=== PATIENT | female | born 1930 | race Caucasian/White ===

== ENCOUNTER 2017-05-14 09:51 | Inpatient (IN) | payer MEDICARE, OTHER ==
[2017-05-14] MEDS ORDERED: NS 0.9% 1000 ML* 1,000 ML IV ONE (10:44)
[2017-05-14 12:35] LABS: Hematocrit 39 % (35-47); Hemoglobin 13.2 g/dl (12.0-16.0); Mean Corpuscular HGB Conc 34 g/dl (31-36); Mean Corpuscular Hemoglobin 33 pg (27-31); Mean Corpuscular Volume 99 fL (80-97); Mean Platelet Volume 7 um3 (7.4-10.4); Red Blood Count 3.94 10^6/ul (4.0-5.4); Red Cell Distribution Width 13 % (10.5-15); White Blood Count 10.4 10^3/ul (3.5-10.8)
[2017-05-14 12:51] LABS: Albumin 3.7 g/dL (3.2-5.2); BUN/Creatinine Ratio 18.2 (8-20); C Reactive Protein 121.87 mg/L (< 5.00); Calcium 8.8 mg/dL (8.6-10.3); EGFR African American 134.2 (>60); EGFR Non-African American 104.3 (>60); Potassium 4.3 mmol/L (3.5-5.0); Total Bilirubin 0.9 mg/dL (0.2-1.0); Total Protein 6.7 g/dL (6.4-8.9)
[2017-05-14] MEDS ORDERED: Ondansetron INJ* 2 MG/ML VIAL ONE (12:52)
[2017-05-14 12:53] LABS: Troponin I 0.02 ng/mL (<0.04)
[2017-05-14 12:55] LABS: Urine Bacteria Absent (Absent); Urine Bilirubin Negative (Negative); Urine Glucose Negative (Negative); Urine Nitrite Negative (Negative)
--- NOTE | 2017-05-14 13:02 | RAD ---
INDICATION: Shortness of breath. COMPARISON: Similar chest x-ray dated January 02, 2015 TECHNIQUE: Single AP portable view of the chest was obtained. FINDINGS: Image quality is compromised due to the relative inferiority of a portable chest x-ray. The heart is mildly enlarged relative to the previous chest x-ray. Pulmonary vasculature looks mildly engorged and is indistinct. The lungs are otherwise adequately aerated on this limited portable AP view. Visualized bones are normal for the patient's age. IMPRESSION: In the correct clinical setting the radiographic findings could be compatible with exacerbation of congestive heart failure.
[2017-05-14] MEDS ORDERED: Furosemide IV* 10 MG/ML 2 ML VIAL (20 MG) IV ONE (13:34)
[2017-05-14] MEDS ORDERED: NS 0.9% 1000 ML* 500 ML IV ONE (13:34)
[2017-05-14] MEDS ORDERED: NS 0.9% 1000 ML* 1,000 ML IV SCH (14:30)
[2017-05-14] MEDS ORDERED: Acetaminophen TAB* 325 MG PO PRN (14:33)
[2017-05-14] MEDS: Ondansetron INJ* 2 MG/ML VIAL IV ONE ×2 (15:38→16:23)
--- NOTE | 2017-05-14 16:07 | HP ---
CC: Dr. Prakash HISTORY AND PHYSICAL: DATE OF ADMISSION: 05/14/17 PRIMARY CARE PHYSICIAN: Dr. Prakash. CHIEF COMPLAINT: "Feeling crummy." HISTORY OF PRESENT ILLNESS: Ms. Cameron is an 87-year-old female with past medical history of hyper tension, hypothyroidism, degenerative disk disease, GERD, AFib, on Eliquis, JORGE LUIS, who presents to the hospital after not improving with treatment for pneumonia. The patient states that over the week, the and the , she developed a dry cough, nausea, fever, and chills. She is a resident a [facility] and, unfortunately, no one was available over the weekend to see her. So, on Friday, 05/12, she saw nurse practitioner Magali, who diagnosed the patient with pneumonia. She reportedly had a temperature of 101 at the appointment. The patient was started on doxycycline, which she has bee n taking for the past few days. She states that since then she has not been feeling particularly we ll. She has not been eating much at all. She states she was told to stay hydrated. So, she has be en drinking a significant amount of water that she initially said was about 2 quarts' worth and then estimated maybe 10 cups. She has been taken Robitussin for her cough, which has remained nonproduc tive. She states she woke up today feeling "crummy," has not had any recurrence of the fever, but she called Magali again, who saw her, and she was sent to the hospital for further evaluation. The cydney suh denies any chest pain, shortness of breath, abdominal pain, wheezing, emesis, although has had significant nausea. Denies any congestion or URI symptoms. No diarrhea, constipation, hematuria o r hematochezia. PAST MEDICAL HISTORY: 1. Hypertension. 2. Anxiety. 3. GERD. 4. Hypothyroidism. 5. Degenerative disk disease. 6. AFib, on Eliquis. Follows with Dr. An. 7. JORGE LUIS. PAST SURGICAL HISTORY: 1. Tonsils and adenoids. 2. Gallbladder removal. 3. Right knee surgery. HOME MEDICATIONS: 1. Vitamin D3 2000 units by mouth daily. 2. Valsartan 80 mg by mouth daily. 3. Thiamine 100 mg by mouth daily. 4. Vitamin C 1000 mg by mouth daily. 5. Acetaminophen 1300 mg by mouth 3 times daily as needed for pain. 6. Tretinoin 0.05% topical daily. 7. Seroquel 12.5 mg by mouth at bedtime. 8. Omeprazole 20 mg by mouth daily. 9. Multivitamin 1 tablet by mouth daily. 10. Calcium carbonate/cholecalciferol 1 tablet by mouth daily. 11. Toprol-XL 12.5 mg every other day. 12. Synthroid 75 mcg by mouth daily. 13. Lasix 20 mg by mouth daily. 14. Guaifenesin 5 mg by mouth every 4 hours as needed for cough. 15. Doxycycline 100 mg by mouth 3 times daily. 16. Aspirin 81 mg by mouth daily. 17. Eliquis 5 mg by mouth 3 times daily. 18. Diltiazem 120 mg by mouth daily. 19. Cranberry 400 mg by mouth daily. ALLERGIES: Reports an allergy to MORPHINE, which causes nausea and vomiting. FAMILY HISTORY: Significant for her father with asthma. SOCIAL HISTORY: The patient has one drink of gin and milk each night. Denies any tobacco use. Den ies any illicit drug use. REVIEW OF SYSTEMS: A 12-point review of systems is negative except for that as noted in the HPI. PHYSICAL EXAMINATION GENERAL: The patient is an elderly female, laying in bed, appears to be in some slight re spiratory distress, although denies this. VITAL SIGNS: On admission, temperature 98.4, heart rate of 100, respiratory rate of 20, O2 saturati on 93% on room air, blood pressure 161/94. HEENT: Head: Normocephalic, atraumatic. Eyes: Pupils equal, round, reactive to light and accommo dation. Anicteric sclerae. ENT: Dry mucous membranes. No cervical adenopathy. LUNGS: The patient has poor airflow. Some expiratory wheezing heard throughout as well as some sli ght rales diffusely. CARDIOVASCULAR: Irregularly irregular. No murmurs, gallops or rubs. ABDOMEN: Obese, soft, nontender, nondistended. Bowel sounds positive. EXTREMITIES: No cyanosis, clubbing, or edema. NEUROLOGIC: The patient is alert and oriented x3. No focal neurological deficits. DIAGNOSTIC STUDIES/LAB DATA: White blood cell count of 10.4, hemoglobin of 13, hematocrit of 39, p latelets of 192. INR of 1.15. Sodium of 120, potassium 4.3, chloride of 85, carbon dioxide of 28, BUN of 10, creatinine of 0.55. LFTs within normal limits. Troponin of 0.02. CRP of 121. B-natri uretic peptide of 346. UA with no signs of infection. EKG shows AFib with intraventricular conduction delay. Chest x-ray, personally reviewed, shows no consolidations. Maybe some increased pulmonary vasculatu re. ASSESSMENT AND PLAN: Hyponatremia in the setting of recently diagnosed pneumonia in an 87-year-old female with a past medical history of hypertension, anxiety, gastroesophageal reflux disease, atrial fibrillation, on Eliquis, hypothyroidism, obstructive sleep apnea, and degenerative disk disease. 1. Hyponatremia: Based on the patient's history, it seems like this is probably due to low solute intake. She appears somewhat dry on exam, although her lung exam is a bit confounding, although I d o not think the rales are secondary to fluid overload. We will check a urine sodium, urine osmolali ty, and a serum osmolality. The patient received IV fluids in the emergency department. We will con tinue her on 100 cc an hour for now and recheck BMP later this afternoon to ensure she is going in t he right direction. 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 Her hyponatremia could be contributing to why she has not seemed to feel better as far as her nausea and "crumminess" goes. We will check a TSH. 2. Recently diagnosed pneumonia: No clear consolidations on chest x-ray. I am going to continue t he patient on her doxycycline for now. CRP is elevated, although this may be down from previously. We will check a procalcitonin. Also prescribe nebulizers as the patient sounds a bit tight on exam . Wean oxygen as able. 3. Hypertension: Continue home losartan, diltiazem, and metoprolol. 4. Atrial fibrillation: Continue rate controlling agents as above as well as Eliquis. 5. Obstructive sleep apnea: CPAP at night. 6. Gastroesophageal reflux disease: Continue PPI. 7. DVT prophylaxis: Eliquis. 8. Code status: The patient is a full code with a trial of intubation. This is provided in paperw or[facility] from [facility]. TIME SPENT: Total time spent on this admission was 45 minutes, with over half the time spent face-t o-face with the patient in counseling and coordinating care. [id number]/[facility] #: [id number]
[2017-05-14 16:57] LABS: BUN/Creatinine Ratio 17.6 (8-20); Calcium 8.6 mg/dL (8.6-10.3); EGFR African American 146.4 (>60); EGFR Non-African American 113.8 (>60); Potassium 4.5 mmol/L (3.5-5.0)
[2017-05-14 17:31] LABS: TSH (Thyroid Stimulating Horm) 1.94 mcIU/mL (0.34-5.60)
--- NOTE | 2017-05-14 18:22 | ED ---
Lance Dent Aidan, scribed for Nitesh So MD on 05/14/17 at 1335 . Respiratory - HPI Summary HPI Summary: 87 y/o female presents to the ED with a complaint of acute, constant, moderate pneumonia that has not been alleviated by the antibiotics that she is currently on. Associated symptoms include nausea for the past 5 days, a dry cough, and a fever of 101 F 2 days ago. She denies any vomiting, diarrhea, constipation, or abdominal pain. She is here by the recommendation of her nurse practitioner. Hx of AFIB. - History of Current Complaint Chief Complaint: EDGeneral Stated Complaint: NAUSEA,COUGHING Time Seen by Provider: 05/14/17 10:44 Hx Obtained From: Patient Onset/Duration: Gradual Onset, Lasting Days, Still Present Timing: Constant Initial Severity: Moderate Current Severity: Moderate Pain Intensity: 0 - no pain mentioned Character: Cough (Nonproductive) - dry Sputum Amount: None Aggravating Factor(s): Other - unknown Alleviating Factor(s): Nothing - unknown Associated Signs and Symptoms: Fever - fever of 101, nausea, dry cough - Allergy/Home Medications Allergies/Adverse Reactions: Allergies Allergy/AdvReac Type Severity Reaction Status Date / Time Morphine Allergy Intermediate nasuea Verified 06/01/16 08:37 Home Medications: Home Medications Acetaminophen [Eql Arthritis Pain Relief] 1,300 mg PO BID PRN 05/14/17 [History Confirmed 05/14/17] Apixaban* [Eliquis*] 5 mg PO BID 05/14/17 [History Confirmed 05/14/17] Cholecalciferol [Vitamin D3 Super Strength] 2,000 unit PO DAILY 05/14/17 [ History Confirmed 05/14/17] Cranberry (Vaccinium Macrocarp [Cranberry] 400 mg PO DAILY 05/14/17 [History Confirmed 05/14/17] DOXYcycline CAP(*) [DOXYcycline 100MG CAP(*)] 100 mg PO BID 05/14/17 [History Confirmed 05/14/17] Furosemide TAB* [Lasix TAB*] 20 mg PO DAILY 05/14/17 [History Confirmed 05/14/17 ] Metoprolol Succinate XL TAB* [Toprol XL TAB*] 12.5 mg PO EVERY OTHER DAY [History Confirmed 05/14/17] Multivitamins/Minerals TAB* [Theragran/minerals TAB*] 1 tab PO DAILY 05/14/17 [ History Confirmed 05/14/17] QUEtiapine TAB* [SEROquel TAB*] 12.5 mg PO BEDTIME 05/14/17 [History Confirmed 05/14/17] Thiamine TAB* [Vitamin B-1 TAB*] 100 mg PO DAILY 05/14/17 [History Confirmed ] Tretinoin (Facial Wrinkles) [Tretinoin Emollient] 0.05 % TOPICAL DAILY 05/14/17 [History Confirmed 05/14/17] Valsartan TAB* [Diovan TAB*] 80 mg PO DAILY 05/14/17 [History Confirmed 05/14/17 ] guaiFENesin LIQ* [Robitussin*] 5 mg PO Q4H PRN 05/14/17 [History Confirmed 05/14] PMH/Surg Hx/FS Hx/Imm Hx Endocrine/Hematology History: Reports: Hx Thyroid Disease - Hypo Denies: Hx Diabetes Cardiovascular History: Reports: Hx Hypertension Denies: Hx Pacemaker/ICD Respiratory History: Reports: Other Respiratory Problems/Disorders - CPAP AT NIGHT. Denies: Hx Asthma, Hx Chronic Obstructive Pulmonary Disease (COPD) GI History: Reports: Hx Gastroesophageal Reflux Disease, Hx Ulcer History: Reports: Other Problems/Disorders - FREQ UTI Musculoskeletal History: Reports: Hx Arthritis Sensory History: Reports: Hx Cataracts, Hx Contacts or Glasses Denies: Hx Hearing Aid Opthamlomology History: Reports: Hx Cataracts, Hx Contacts or Glasses Neurological History: Reports: Hx Dementia Psychiatric History: Reports: Hx Depression, Hx of Violent Episodes Against Others Denies: Hx Eating Disorder, Hx Panic Disorder - Cancer History Hx Chemotherapy: No Hx Radiation Therapy: No - Surgical History Surgery Procedure, Year, and Place: Gall Bladder. RIGHT Knee Replacement. Cataracts Bilat. Tonsillectomy, Adenoidectomy Hx Anesthesia Reactions: No Infectious Disease History: No Infectious Disease History: Denies: Hx Hepatitis, Hx Human Immunodeficiency Virus (HIV), Hx of Known/ Suspected MRSA, Hx Shingles, Hx Tuberculosis, History Other Infectious Disease, Traveled Outside the [place] in Last 30 Days - Family History Known Family History: Positive: Unknown Negative: Other - breast CA - Social History Occupation: Retired Lives: With Family Alcohol Use: Daily Alcohol Amount: One glass of wine daily Substance Use Type: Reports: None Smoking Status (MU): Never Smoked Tobacco Have You Smoked in the Last Year: No Review of Systems Positive: Fever. Negative: Chills, Fatigue, Skin Diaphoresis Eyes: Negative ENT: Negative Cardiovascular: Negative Positive: Cough, Other - Positive pneumonia. Negative: Shortness Of Breath Positive: Nausea. Negative: Abdominal Pain, Vomiting, Diarrhea Genitourinary: Negative Musculoskeletal: Negative Skin: Negative Neurological: Negative Psychological: Normal All Other Systems Reviewed And Are Negative: Yes Physical Exam - Summary Physical Exam Summary: VITAL SIGNS: Reviewed. GENERAL: Patient is a well-developed and nourished FEMALE who is lying comfortable in the stretcher. Patient is not in any acute respiratory distress. HEAD AND FACE: No signs of trauma. No ecchymosis, hematomas or skull depressions. No sinus tenderness. EYES: PERRLA, EOMI x 2, No injected conjunctiva, no nystagmus. EARS: Hearing grossly intact. Ear canals and tympanic membranes are within normal limits. MOUTH: Oropharynx within normal limits. NECK: Supple, trachea is midline, no adenopathy, no JVD, no carotid bruit, no c- spine tenderness, neck with full ROM. CHEST: Symmetric, no tenderness at palpation LUNGS: Clear to auscultation bilaterally. No wheezing, however, she has crackles at the base of her lungs bilaterally. CVS: Positive Irregular rate and rhythm, S1 and S2 present, no murmurs or gallops appreciated. ABDOMEN: Soft, non-tender. No signs of distention. No rebound no guarding, and no masses palpated. Bowel sounds are normal. EXTREMITIES: FROM in all major joints, no edema, no cyanosis or clubbing. NEURO: Alert and oriented x 3. No acute neurological deficits. Speech is normal and follows commands. SKIN: Dry and warm Triage Information Reviewed: Yes Vital Signs On Initial Exam: Initial Vitals Temp Pulse Resp BP Pulse Ox 98.4 F 100 20 161/94 93 05/14/17 10:16 05/14/17 10:16 05/14/17 10:16 05/14/17 10:16 05/14/17 10:16 Vital Signs Reviewed: Yes - Vance Coma Scale Coma Scale Total: 15 Diagnostics - Vital Signs Vital Signs Temp Pulse Resp BP Pulse Ox 05/14/17 13:08 94 05/14/17 12:00 161/91 06/14/17 11:51 95 19 93 05/14/17 11:50 93 05/14/17 11:18 97 16 156/93 95 05/14/17 10:20 98.5 F 100 20 161/94 93 05/14/17 10:16 98.4 F 100 20 161/94 93 - Laboratory Lab Results: Lab Results 05/14/17 05/14/17 05/14/17 Range/Units 12:15 12:15 12:15 WBC 10.4 (3.5-10.8) 10^3/ul RBC 3.94 L (4.0-5.4) 10^6/ul Hgb 13.2 (12.0-16.0) g/dl Hct 39 (35-47) % MCV 99 H (80-97) fL MCH 33 H (27-31) pg MCHC 34 (31-36) g/dl RDW 13 (10.5-15) % Plt Count 192 (150-450) 10^3/ul MPV 7 L (7.4-10.4) um3 Neut % (Auto) 81.3 (38-83) % Lymph % (Auto) 9.3 L (25-47) % [place] % (Auto) 8.7 (1-9) % Eos % (Auto) 0.4 (0-6) % Baso % (Auto) 0.3 (0-2) % Absolute Neuts (auto) 8.4 H (1.5-7.7) 10^3/ul Absolute Lymphs (auto) 1.0 (1.0-4.8) 10^3/ul Absolute Monos (auto) 0.9 H (0-0.8) 10^3/ul Absolute Eos (auto) 0 (0-0.6) 10^3/ul Absolute Basos (auto) 0 (0-0.2) 10^3/ul Absolute Nucleated RBC 0.01 10^3/ul Nucleated RBC % 0.1 INR (Anticoag Therapy) 1.15 H (0.89-1.11) APTT 23.9 L (26.0-36.3) seconds Sodium (133-145) mmol/L Potassium (3.5-5.0) mmol/L Chloride (101-111) mmol/L Carbon Dioxide (22-32) mmol/L Anion Gap (2-11) mmol/L BUN (6-24) mg/dL Creatinine (0.51-0.95) mg/dL Est GFR ( Amer) (>60) Est GFR (Non-Af Amer) (>60) BUN/Creatinine Ratio (8-20) Glucose (70-100) mg/dL Calcium (8.6-10.3) mg/dL Total Bilirubin (0.2-1.0) mg/dL AST (13-39) U/L ALT (7-52) U/L Alkaline Phosphatase (34-104) U/L Troponin I (<0.04) ng/mL C-Reactive Protein (< 5.00) mg/L B-Natriuretic Peptide ( - 100) pg/mL Total Protein (6.4-8.9) g/dL Albumin (3.2-5.2) g/dL Globulin (2-4) g/dL Albumin/Globulin Ratio (1-3) Urine Color Yellow Urine Appearance Clear Urine pH 6.0 (5-9) Ur Specific [place] 1.015 (1.010-1.030) Urine Protein Negative (Negative) Urine Ketones 1+ H (Negative) Urine Blood Negative (Negative) Urine Nitrate Negative (Negative) Urine Bilirubin Negative (Negative) Urine Urobilinogen Positive H (Negative) Ur Leukocyte Esterase Trace H (Negative) Urine WBC (Auto) Trace(0-5/hpf) (Absent) Urine RBC (Auto) Absent (Absent) Ur Squamous Epith Cells Present H (Absent) Urine Bacteria Absent (Absent) Urine Glucose Negative (Negative) Urine Ascorbic Acid * H (Negative) 05/14/17 05/14/17 Range/Units 12:15 12:15 WBC (3.5-10.8) 10^3/ul RBC (4.0-5.4) 10^6/ul Hgb (12.0-16.0) g/dl Hct (35-47) % MCV (80-97) fL MCH (27-31) pg MCHC (31-36) g/dl RDW (10.5-15) % Plt Count (150-450) 10^3/ul MPV (7.4-10.4) um3 Neut % (Auto) (38-83) % Lymph % (Auto) (25-47) % [place] % (Auto) (1-9) % Eos % (Auto) (0-6) % Baso % (Auto) (0-2) % Absolute Neuts (auto) (1.5-7.7) 10^3/ul Absolute Lymphs (auto) (1.0-4.8) 10^3/ul Absolute Monos (auto) (0-0.8) 10^3/ul Absolute Eos (auto) (0-0.6) 10^3/ul Absolute Basos (auto) (0-0.2) 10^3/ul Absolute Nucleated RBC 10^3/ul Nucleated RBC % INR (Anticoag Therapy) (0.89-1.11) APTT (26.0-36.3) seconds Sodium 120 L (133-145) mmol/L Potassium 4.3 (3.5-5.0) mmol/L Chloride 85 L (101-111) mmol/L Carbon Dioxide 28 (22-32) mmol/L Anion Gap 7 (2-11) mmol/L BUN 10 (6-24) mg/dL Creatinine 0.55 (0.51-0.95) mg/dL Est GFR ( Amer) 134.2 (>60) Est GFR (Non-Af Amer) 104.3 (>60) BUN/Creatinine Ratio 18.2 (8-20) Glucose 100 (70-100) mg/dL Calcium 8.8 (8.6-10.3) mg/dL Total Bilirubin 0.90 (0.2-1.0) mg/dL AST 35 (13-39) U/L ALT 38 (7-52) U/L Alkaline Phosphatase 92 (34-104) U/L Troponin I 0.02 (<0.04) ng/mL C-Reactive Protein 121.87 H (< 5.00) mg/L B-Natriuretic Peptide 346 H ( - 100) pg/mL Total Protein 6.7 (6.4-8.9) g/dL Albumin 3.7 (3.2-5.2) g/dL Globulin 3.0 (2-4) g/dL Albumin/Globulin Ratio 1.2 (1-3) Urine Color Urine Appearance Urine pH (5-9) Ur Specific [place] (1.010-1.030) Urine Protein (Negative) Urine Ketones (Negative) Urine Blood (Negative) Urine Nitrate (Negative) Urine Bilirubin (Negative) Urine Urobilinogen (Negative) Ur Leukocyte Esterase (Negative) Urine WBC (Auto) (Absent) Urine RBC (Auto) (Absent) Ur Squamous Epith Cells (Absent) Urine Bacteria (Absent) Urine Glucose (Negative) Urine Ascorbic Acid (Negative) Result Diagrams: 05/14/17 12:15 05/14/17 16:32 Lab Statement: Any lab studies that have been ordered have been reviewed, and results considered in the medical decision making process. - Radiology CHEST X-RAY Xray Interpretation: Positive (See Comments) - IMPRESSION: In the correct clinical setting the radiographic findings could be compatible with exacerbation of congestive heart failure. Radiology Interpretation Completed By: Radiologist - EKG EKG 1314 Cardiac Rate: NL - 85 BPM EKG Rhythm: Atrial Fibrillation EKG Interpretation: AFIB Re-Evaluation - Re-Evaluation First Eval Re-Evaluation Time: 13:20 - The patient still had AFIB Change: Unchanged Disposition - Course Assessment/Plan: 87 y/o female presents to the ED with a complaint of acute, constant, moderate pneumonia that has not been alleviated by the antibiotics that she is currently on. Associated symptoms include nausea for the past 5 days , a dry cough, and a fever of 101 F 2 days ago. She denies any vomiting, diarrhea, constipation, or abdominal pain. She is here by the recommendation of her nurse practitioner. Hx of AFIB. In the ED course an IV access was obtained. Patient was placed in a telemetry monitor. Patient was started with gentle IV fluids. Labs within normal limits except for Hyponatremia of 120. CRP 121.8 and BNP of 346. Troponin #1: 0.02. EKG shows atrial fibrillation rate control. CXR impression: CHF exacerbation. . In the ED course she was give Lasix and IV fluids for her Hyponatremia. SHe has been stable and has no other complaints. CXR shows no pneumonia, I believe that most of her symptoms are secondary to the hyponatremia. I discuss my physical exam, findings and test results with Dr. Corona from the hospitalist services and she agrees to admit patient to his services. Patient is hemodynamically stable alert and oriented x 3. - Differential Dx - Cardiopulmonary Differential Diagnoses - Cardiopulmonary: Other - Pneumonia, Bronchitis, UTI, Electrolite imbalance - Diagnoses Provider Diagnoses: Hyponatremia Discharge - Discharge Plan Condition: Stable Disposition: ADMITTED TO [facility] Discharge Disposition Comment: The patient will be admitted and signed out to Dr. Corona. The documentation as recorded by the Lance garcia Aidan accurately reflects the service I personally performed and the decisions made by , Nitesh So MD.
[2017-05-14] MEDS: Ondansetron ODT TAB* 4 MG SL PRN ×2 (18:33→23:57)
[2017-05-14] MEDS: QUEtiapine TAB* 25 MG PO SCH (23:09)
[2017-05-14] MEDS: DOXYcycline CAP(*) 100 MG PO SCH (23:10)
[2017-05-14] MEDS: Apixaban* 5 MG TAB PO SCH (23:11)
[2017-05-14] MEDS: guaiFENesin LIQ* 100 MG/5 ML UDC PO PRN (23:14)
[2017-05-15] MEDS: Levothyroxine TAB* 75 MCG TAB PO SCH (05:43)
[2017-05-15] MEDS: guaiFENesin LIQ* 100 MG/5 ML UDC PO PRN ×2 (06:06→19:39)
[2017-05-15] MEDS: Ondansetron ODT TAB* 4 MG SL PRN (06:07)
[2017-05-15 07:13] LABS: BUN/Creatinine Ratio 14.5 (8-20); Calcium 8.1 mg/dL (8.6-10.3); EGFR African American 116.8 (>60); EGFR Non-African American 90.8 (>60); Potassium 4.2 mmol/L (3.5-5.0)
[2017-05-15] MEDS ORDERED: Albuterol/Ipratropium NEB.SOL* Albuterol 2.5 MG/Ipratropium 0.5 MG 3 ML INH PRN (08:09)
--- NOTE | 2017-05-15 08:38 | PN ---
Subjective Date of Service: 05/15/17 Interval History: Pt feels better today. RN noted her wheezing this aM Usually uses CPAP and 2 L 02 at night Objective Active Medications: Acetaminophen (Tylenol Tab*) 650 mg PO Q6H PRN PRN Reason: PAIN Albuterol (Ventolin 2.5 Mg/3 Ml Neb.Danica*) 2.5 mg INH Q4H PRN PRN Reason: SOB/WHEEZING Albuterol/Ipratropium (Duoneb (Albuterol 2.5 Mg/Ipratropium 0.5 Mg)) 1 neb INH Q4H PRN PRN Reason: SOB/WHEEZING Apixaban (Eliquis*) 5 mg PO BID [facility] Last Admin: 05/14/17 23:11 Dose: 5 mg Ascorbic Acid (Vitamin C Tab*) 1,000 mg PO DAILY [facility] Aspirin (Aspirin Low Dose Tab*) 81 mg PO DAILY [facility] Calcium/Vitamin D (Oscal D Tab 250/125*) 1 tab PO DAILY [facility] Cholecalciferol (Vitamin D Tab*) 2,000 units PO DAILY [facility] Diltiazem HCl (Cardizem Cd Cap*) 120 mg PO DAILY [facility] Doxycycline Hyclate (Vibramycin Cap(*)) 100 mg PO BID [facility] Last Admin: 05/14/17 23:10 Dose: 100 mg Guaifenesin (Robitussin*) 5 ml PO Q4H PRN PRN Reason: COUGH Last Admin: 05/15/17 06:06 Dose: 5 ml Levothyroxine Sodium (Synthroid Tab*) 75 mcg PO 0600 [facility] Last Admin: 05/15/17 05:43 Dose: 75 mcg Metoprolol Succinate (Toprol Xl Tab*) 12.5 mg PO EVERY OTHER DAY [facility] Multivitamins/Minerals (Theragran/Minerals Tab*) 1 tab PO DAILY [facility] Omeprazole (Prilosec Cap*) 20 mg PO DAILY [facility] Ondansetron HCl (Zofran Odt Tab*) 4 mg SL Q6H PRN PRN Reason: NAUSEA/VOMITING Last Admin: 05/15/17 06:07 Dose: 4 mg Quetiapine Fumarate (Seroquel Tab*) 12.5 mg PO BEDTIME [facility] Last Admin: 05/14/17 23:09 Dose: 12.5 mg Thiamine HCl (Vitamin B-1 Tab*) 100 mg PO DAILY [facility] Valsartan (Diovan Tab*) 80 mg PO DAILY [facility] Vital Signs 05/14/17 05/14/17 05/14/17 16:12 19:46 20:00 Temperature 98.3 F 98.7 F Pulse Rate 98 97 Respiratory 20 20 22 Rate Blood Pressure 165/86 153/98 (mmHg) O2 Sat by Pulse 98 97 97 Oximetry 05/14/17 05/14/17 05/15/17 20:52 23:25 03:40 Temperature 98.7 F 97.0 F Pulse Rate 89 114 92 Respiratory 20 18 16 Rate Blood Pressure 154/97 149/78 (mmHg) O2 Sat by Pulse 97 96 92 Oximetry 05/15/17 07:25 Temperature 98.6 F Pulse Rate 97 Respiratory 15 Rate Blood Pressure 129/63 (mmHg) O2 Sat by Pulse 98 Oximetry Oxygen Devices in Use Now: Nasal Cannula - at 2 L Appearance: 87 yo F in nAD, aAOx3, poor historian Eyes: No Scleral Icterus, PERRLA Ears/Nose/Mouth/Throat: NL Teeth, Lips, Gums, Mucous Membranes Moist Neck: NL Appearance and Movements; NL JVP, Trachea Midline Respiratory: Symmetrical Chest Expansion and Respiratory Effort, - - crackles at wheezes at b/l bases Cardiovascular: - - irregular Abdominal: NL Sounds; No Tenderness; No Distention, No Hepatosplenomegaly Lymphatic: No Cervical Adenopathy Extremities: No Edema, No Clubbing, Cyanosis Skin: No Rash or Ulcers, No Nodules or Sclerosis Neurological: Alert and Oriented x 3, NL Muscle Strength and Tone Result Diagrams: 05/14/17 12:15 05/15/17 06:21 Additional Lab and Data: Lab Results 05/14/17 05/14/17 05/14/17 Range/Units 12:15 12:15 12:15 WBC 10.4 (3.5-10.8) 10^3/ul RBC 3.94 L (4.0-5.4) 10^6/ul Hgb 13.2 (12.0-16.0) g/dl Hct 39 (35-47) % MCV 99 H (80-97) fL MCH 33 H (27-31) pg MCHC 34 (31-36) g/dl RDW 13 (10.5-15) % Plt Count 192 (150-450) 10^3/ul MPV 7 L (7.4-10.4) um3 Neut % (Auto) 81.3 (38-83) % Lymph % (Auto) 9.3 L (25-47) % [place] % (Auto) 8.7 (1-9) % Eos % (Auto) 0.4 (0-6) % Baso % (Auto) 0.3 (0-2) % Absolute Neuts (auto) 8.4 H (1.5-7.7) 10^3/ul Absolute Lymphs (auto) 1.0 (1.0-4.8) 10^3/ul Absolute Monos (auto) 0.9 H (0-0.8) 10^3/ul Absolute Eos (auto) 0 (0-0.6) 10^3/ul Absolute Basos (auto) 0 (0-0.2) 10^3/ul Absolute Nucleated RBC 0.01 10^3/ul Nucleated RBC % 0.1 INR (Anticoag Therapy) 1.15 H (0.89-1.11) APTT 23.9 L (26.0-36.3) seconds Sodium (133-145) mmol/L Potassium (3.5-5.0) mmol/L Chloride (101-111) mmol/L Carbon Dioxide (22-32) mmol/L Anion Gap (2-11) mmol/L BUN (6-24) mg/dL Creatinine (0.51-0.95) mg/dL Est GFR ( Amer) (>60) Est GFR (Non-Af Amer) (>60) BUN/Creatinine Ratio (8-20) Glucose (70-100) mg/dL Calcium (8.6-10.3) mg/dL Total Bilirubin (0.2-1.0) mg/dL AST (13-39) U/L ALT (7-52) U/L Alkaline Phosphatase (34-104) U/L Troponin I (<0.04) ng/mL C-Reactive Protein (< 5.00) mg/L B-Natriuretic Peptide ( - 100) pg/mL Total Protein (6.4-8.9) g/dL Albumin (3.2-5.2) g/dL Globulin (2-4) g/dL Albumin/Globulin Ratio (1-3) Urine Color Yellow Urine Appearance Clear Urine pH 6.0 (5-9) Ur Specific [place] 1.015 (1.010-1.030) Urine Protein Negative (Negative) Urine Ketones 1+ H (Negative) Urine Blood Negative (Negative) Urine Nitrate Negative (Negative) Urine Bilirubin Negative (Negative) Urine Urobilinogen Positive H (Negative) Ur Leukocyte Esterase Trace H (Negative) Urine WBC (Auto) Trace(0-5/hpf) (Absent) Urine RBC (Auto) Absent (Absent) Ur Squamous Epith Cells Present H (Absent) Urine Bacteria Absent (Absent) Urine Glucose Negative (Negative) Urine Ascorbic Acid * H (Negative) 05/14/17 05/14/17 Range/Units 12:15 12:15 WBC (3.5-10.8) 10^3/ul RBC (4.0-5.4) 10^6/ul Hgb (12.0-16.0) g/dl Hct (35-47) % MCV (80-97) fL MCH (27-31) pg MCHC (31-36) g/dl RDW (10.5-15) % Plt Count (150-450) 10^3/ul MPV (7.4-10.4) um3 Neut % (Auto) (38-83) % Lymph % (Auto) (25-47) % [place] % (Auto) (1-9) % Eos % (Auto) (0-6) % Baso % (Auto) (0-2) % Absolute Neuts (auto) (1.5-7.7) 10^3/ul Absolute Lymphs (auto) (1.0-4.8) 10^3/ul Absolute Monos (auto) (0-0.8) 10^3/ul Absolute Eos (auto) (0-0.6) 10^3/ul Absolute Basos (auto) (0-0.2) 10^3/ul Absolute Nucleated RBC 10^3/ul Nucleated RBC % INR (Anticoag Therapy) (0.89-1.11) APTT (26.0-36.3) seconds Sodium 120 L (133-145) mmol/L Potassium 4.3 (3.5-5.0) mmol/L Chloride 85 L (101-111) mmol/L Carbon Dioxide 28 (22-32) mmol/L Anion Gap 7 (2-11) mmol/L BUN 10 (6-24) mg/dL Creatinine 0.55 (0.51-0.95) mg/dL Est GFR ( Amer) 134.2 (>60) Est GFR (Non-Af Amer) 104.3 (>60) BUN/Creatinine Ratio 18.2 (8-20) Glucose 100 (70-100) mg/dL Calcium 8.8 (8.6-10.3) mg/dL Total Bilirubin 0.90 (0.2-1.0) mg/dL AST 35 (13-39) U/L ALT 38 (7-52) U/L Alkaline Phosphatase 92 (34-104) U/L Troponin I 0.02 (<0.04) ng/mL C-Reactive Protein 121.87 H (< 5.00) mg/L B-Natriuretic Peptide 346 H ( - 100) pg/mL Total Protein 6.7 (6.4-8.9) g/dL Albumin 3.7 (3.2-5.2) g/dL Globulin 3.0 (2-4) g/dL Albumin/Globulin Ratio 1.2 (1-3) Urine Color Urine Appearance Urine pH (5-9) Ur Specific [place] (1.010-1.030) Urine Protein (Negative) Urine Ketones (Negative) Urine Blood (Negative) Urine Nitrate (Negative) Urine Bilirubin (Negative) Urine Urobilinogen (Negative) Ur Leukocyte Esterase (Negative) Urine WBC (Auto) (Absent) Urine RBC (Auto) (Absent) Ur Squamous Epith Cells (Absent) Urine Bacteria (Absent) Urine Glucose (Negative) Urine Ascorbic Acid (Negative) Assess/Plan/Problems-Billing Assessment: 87 yo F with h/o JORGE LUIS, HTN, hypothyroidism, A. fib presents with recent dx of PNA and hyponatremia - Patient Problems (1) Hyponatremia Comment: due to dehydration, resolved after IVF. will stop IVF, monitor (2) Atrial fibrillation Comment: rate controled, cont Eliquis and cardizem (3) HTN (hypertension) Comment: controlled (4) Hypothyroidism Comment: TSH 1.9 , cont Synthroid (5) Pneumonia Comment: community acquired, dx as outpatient. Cont Doxy no infiltrate on CXR (6) Bronchospasm Comment: due to pneumonia, ? viral since procalcitonin low Will start duonebs (7) DVT prophylaxis Comment: Eliquis Status and Disposition: OBV will be changed to inpatient, due to need of further tx of bronchospasm
[2017-05-15] MEDS: Albuterol 2.5 MG/3 ML NEB.SOL* (0.083%) INH PRN (08:45)
[2017-05-15] MEDS: DOXYcycline CAP(*) 100 MG PO SCH ×2 (10:12→20:58)
[2017-05-15] MEDS: Calcium/Vitamin D TAB 250/125* TAB PO SCH (10:12)
[2017-05-15] MEDS: Ascorbic Acid TAB* 500 MG PO SCH (10:12)
[2017-05-15] MEDS: Omeprazole CAP* 20 MG PO SCH (10:12)
[2017-05-15] MEDS: Multivitamins/Minerals TAB PO SCH (10:12)
[2017-05-15] MEDS: Cholecalciferol TAB* 1000 UNITS PO SCH (10:12)
[2017-05-15] MEDS: Aspirin Low Dose CHEW TAB* 81 MG PO SCH (10:12)
[2017-05-15] MEDS: Thiamine TAB* 100 MG TAB PO SCH (10:13)
[2017-05-15] MEDS: Apixaban* 5 MG TAB PO SCH ×2 (10:13→20:57)
[2017-05-15] MEDS: Diltiazem CD CAP* 120 MG PO SCH (10:13)
[2017-05-15] MEDS: Valsartan TAB* 80 MG PO SCH (10:14)
[2017-05-15] MEDS: QUEtiapine TAB* 25 MG PO SCH (20:58)
[2017-05-16 05:40] LABS: Hematocrit 36 % (35-47); Hemoglobin 12.1 g/dl (12.0-16.0); Mean Corpuscular HGB Conc 34 g/dl (31-36); Mean Corpuscular Hemoglobin 34 pg (27-31); Mean Corpuscular Volume 99 fL (80-97); Mean Platelet Volume 7 um3 (7.4-10.4); Red Blood Count 3.62 10^6/ul (4.0-5.4); Red Cell Distribution Width 13 % (10.5-15); White Blood Count 9.3 10^3/ul (3.5-10.8)
[2017-05-16 06:04] LABS: Calcium 8.5 mg/dL (8.6-10.3); EGFR African American 149.7 (>60); EGFR Non-African American 116.4 (>60); Potassium 3.6 mmol/L (3.5-5.0)
[2017-05-16] MEDS: guaiFENesin LIQ* 100 MG/5 ML UDC PO PRN ×3 (06:07→21:49)
[2017-05-16] MEDS: Levothyroxine TAB* 75 MCG TAB PO SCH (06:08)
[2017-05-16] MEDS: Metoprolol Succinate XL TAB* 25 MG PO SCH (10:05)
[2017-05-16] MEDS: Cholecalciferol TAB* 1000 UNITS PO SCH (10:06)
[2017-05-16] MEDS: Calcium/Vitamin D TAB 250/125* TAB PO SCH (10:06)
[2017-05-16] MEDS: Ascorbic Acid TAB* 500 MG PO SCH (10:06)
[2017-05-16] MEDS: Thiamine TAB* 100 MG TAB PO SCH (10:06)
[2017-05-16] MEDS: Aspirin Low Dose CHEW TAB* 81 MG PO SCH (10:07)
[2017-05-16] MEDS: Valsartan TAB* 80 MG PO SCH (10:07)
[2017-05-16] MEDS: Multivitamins/Minerals TAB PO SCH (10:07)
[2017-05-16] MEDS: DOXYcycline CAP(*) 100 MG PO SCH ×2 (10:07→21:50)
[2017-05-16] MEDS: Omeprazole CAP* 20 MG PO SCH (10:07)
[2017-05-16] MEDS: Diltiazem CD CAP* 120 MG PO SCH (10:08)
[2017-05-16] MEDS: Apixaban* 5 MG TAB PO SCH ×2 (10:13→21:50)
--- NOTE | 2017-05-16 12:03 | PN ---
Subjective Date of Service: 05/16/17 Interval History: Pt feels better today,appetite has returned. /still 02 sat on RA down to 86% Objective Active Medications: Acetaminophen (Tylenol Tab*) 650 mg PO Q6H PRN PRN Reason: PAIN Albuterol (Ventolin 2.5 Mg/3 Ml Neb.Danica*) 2.5 mg INH Q4H PRN PRN Reason: SOB/WHEEZING Last Admin: 05/15/17 08:45 Dose: 2.5 mg Albuterol/Ipratropium (Duoneb (Albuterol 2.5 Mg/Ipratropium 0.5 Mg)) 1 neb INH Q4H PRN PRN Reason: SOB/WHEEZING Apixaban (Eliquis*) 5 mg PO BID [facility] Last Admin: 05/16/17 10:13 Dose: 5 mg Ascorbic Acid (Vitamin C Tab*) 1,000 mg PO DAILY [facility] Last Admin: 05/16/17 10:06 Dose: 1,000 mg Aspirin (Aspirin Low Dose Tab*) 81 mg PO DAILY [facility] Last Admin: 05/16/17 10:07 Dose: 81 mg Calcium/Vitamin D (Oscal D Tab 250/125*) 1 tab PO DAILY [facility] Last Admin: 05/16/17 10:06 Dose: 1 tab Cholecalciferol (Vitamin D Tab*) 2,000 units PO DAILY [facility] Last Admin: 05/16/17 10:06 Dose: 2,000 units Diltiazem HCl (Cardizem Cd Cap*) 120 mg PO DAILY [facility] Last Admin: 05/16/17 10:08 Dose: 120 mg Doxycycline Hyclate (Vibramycin Cap(*)) 100 mg PO BID [facility] Last Admin: 05/16/17 10:07 Dose: 100 mg Guaifenesin (Robitussin*) 5 ml PO Q4H PRN PRN Reason: COUGH Last Admin: 05/16/17 06:07 Dose: 5 ml Levothyroxine Sodium (Synthroid Tab*) 75 mcg PO 0600 [facility] Last Admin: 05/16/17 06:08 Dose: 75 mcg Metoprolol Succinate (Toprol Xl Tab*) 12.5 mg PO EVERY OTHER DAY [facility] Last Admin: 05/16/17 10:05 Dose: 12.5 mg Multivitamins/Minerals (Theragran/Minerals Tab*) 1 tab PO DAILY [facility] Last Admin: 05/16/17 10:07 Dose: 1 tab Omeprazole (Prilosec Cap*) 20 mg PO DAILY [facility] Last Admin: 05/16/17 10:07 Dose: 20 mg Ondansetron HCl (Zofran Odt Tab*) 4 mg SL Q6H PRN PRN Reason: NAUSEA/VOMITING Last Admin: 05/15/17 06:07 Dose: 4 mg Quetiapine Fumarate (Seroquel Tab*) 12.5 mg PO BEDTIME [facility] Last Admin: 05/15/17 20:58 Dose: 12.5 mg Thiamine HCl (Vitamin B-1 Tab*) 100 mg PO DAILY [facility] Last Admin: 05/16/17 10:06 Dose: 100 mg Valsartan (Diovan Tab*) 80 mg PO DAILY [facility] Last Admin: 05/16/17 10:07 Dose: 80 mg Vital Signs 05/15/17 05/15/17 05/15/17 12:13 15:29 19:14 Temperature 97.5 F 98.6 F 98.7 F Pulse Rate 117 77 91 Respiratory 16 17 17 Rate Blood Pressure 151/83 136/71 139/70 (mmHg) O2 Sat by Pulse 93 97 98 Oximetry 05/15/17 05/15/17 05/16/17 20:00 23:12 03:43 Temperature 98.1 F Pulse Rate 99 81 Respiratory 20 20 16 Rate Blood Pressure 131/66 135/72 (mmHg) O2 Sat by Pulse 98 93 98 Oximetry 05/16/17 09:28 Temperature Pulse Rate 65 Respiratory 12 Rate Blood Pressure (mmHg) O2 Sat by Pulse 98 Oximetry Oxygen Devices in Use Now: Nasal Cannula - at 2 L Appearance: 87 yo F in nAD, aAOx3, poor historian Eyes: No Scleral Icterus, PERRLA Ears/Nose/Mouth/Throat: NL Teeth, Lips, Gums, Mucous Membranes Moist Neck: NL Appearance and Movements; NL JVP, Trachea Midline Respiratory: Symmetrical Chest Expansion and Respiratory Effort, - - diffuse wheezes b/l crackles at bases Cardiovascular: - - irregular Lymphatic: No Cervical Adenopathy Extremities: No Edema, No Clubbing, Cyanosis Skin: No Rash or Ulcers, No Nodules or Sclerosis Neurological: Alert and Oriented x 3, NL Muscle Strength and Tone Result Diagrams: 05/16/17 05:25 05/16/17 05:25 Additional Lab and Data: Lab Results 05/14/17 05/14/17 05/14/17 Range/Units 12:15 12:15 12:15 WBC 10.4 (3.5-10.8) 10^3/ul RBC 3.94 L (4.0-5.4) 10^6/ul Hgb 13.2 (12.0-16.0) g/dl Hct 39 (35-47) % MCV 99 H (80-97) fL MCH 33 H (27-31) pg MCHC 34 (31-36) g/dl RDW 13 (10.5-15) % Plt Count 192 (150-450) 10^3/ul MPV 7 L (7.4-10.4) um3 Neut % (Auto) 81.3 (38-83) % Lymph % (Auto) 9.3 L (25-47) % [place] % (Auto) 8.7 (1-9) % Eos % (Auto) 0.4 (0-6) % Baso % (Auto) 0.3 (0-2) % Absolute Neuts (auto) 8.4 H (1.5-7.7) 10^3/ul Absolute Lymphs (auto) 1.0 (1.0-4.8) 10^3/ul Absolute Monos (auto) 0.9 H (0-0.8) 10^3/ul Absolute Eos (auto) 0 (0-0.6) 10^3/ul Absolute Basos (auto) 0 (0-0.2) 10^3/ul Absolute Nucleated RBC 0.01 10^3/ul Nucleated RBC % 0.1 INR (Anticoag Therapy) 1.15 H (0.89-1.11) APTT 23.9 L (26.0-36.3) seconds Sodium (133-145) mmol/L Potassium (3.5-5.0) mmol/L Chloride (101-111) mmol/L Carbon Dioxide (22-32) mmol/L Anion Gap (2-11) mmol/L BUN (6-24) mg/dL Creatinine (0.51-0.95) mg/dL Est GFR ( Amer) (>60) Est GFR (Non-Af Amer) (>60) BUN/Creatinine Ratio (8-20) Glucose (70-100) mg/dL Calcium (8.6-10.3) mg/dL Total Bilirubin (0.2-1.0) mg/dL AST (13-39) U/L ALT (7-52) U/L Alkaline Phosphatase (34-104) U/L Troponin I (<0.04) ng/mL C-Reactive Protein (< 5.00) mg/L B-Natriuretic Peptide ( - 100) pg/mL Total Protein (6.4-8.9) g/dL Albumin (3.2-5.2) g/dL Globulin (2-4) g/dL Albumin/Globulin Ratio (1-3) Urine Color Yellow Urine Appearance Clear Urine pH 6.0 (5-9) Ur Specific [place] 1.015 (1.010-1.030) Urine Protein Negative (Negative) Urine Ketones 1+ H (Negative) Urine Blood Negative (Negative) Urine Nitrate Negative (Negative) Urine Bilirubin Negative (Negative) Urine Urobilinogen Positive H (Negative) Ur Leukocyte Esterase Trace H (Negative) Urine WBC (Auto) Trace(0-5/hpf) (Absent) Urine RBC (Auto) Absent (Absent) Ur Squamous Epith Cells Present H (Absent) Urine Bacteria Absent (Absent) Urine Glucose Negative (Negative) Urine Ascorbic Acid * H (Negative) 05/14/17 05/14/17 Range/Units 12:15 12:15 WBC (3.5-10.8) 10^3/ul RBC (4.0-5.4) 10^6/ul Hgb (12.0-16.0) g/dl Hct (35-47) % MCV (80-97) fL MCH (27-31) pg MCHC (31-36) g/dl RDW (10.5-15) % Plt Count (150-450) 10^3/ul MPV (7.4-10.4) um3 Neut % (Auto) (38-83) % Lymph % (Auto) (25-47) % [place] % (Auto) (1-9) % Eos % (Auto) (0-6) % Baso % (Auto) (0-2) % Absolute Neuts (auto) (1.5-7.7) 10^3/ul Absolute Lymphs (auto) (1.0-4.8) 10^3/ul Absolute Monos (auto) (0-0.8) 10^3/ul Absolute Eos (auto) (0-0.6) 10^3/ul Absolute Basos (auto) (0-0.2) 10^3/ul Absolute Nucleated RBC 10^3/ul Nucleated RBC % INR (Anticoag Therapy) (0.89-1.11) APTT (26.0-36.3) seconds Sodium 120 L (133-145) mmol/L Potassium 4.3 (3.5-5.0) mmol/L Chloride 85 L (101-111) mmol/L Carbon Dioxide 28 (22-32) mmol/L Anion Gap 7 (2-11) mmol/L BUN 10 (6-24) mg/dL Creatinine 0.55 (0.51-0.95) mg/dL Est GFR ( Amer) 134.2 (>60) Est GFR (Non-Af Amer) 104.3 (>60) BUN/Creatinine Ratio 18.2 (8-20) Glucose 100 (70-100) mg/dL Calcium 8.8 (8.6-10.3) mg/dL Total Bilirubin 0.90 (0.2-1.0) mg/dL AST 35 (13-39) U/L ALT 38 (7-52) U/L Alkaline Phosphatase 92 (34-104) U/L Troponin I 0.02 (<0.04) ng/mL C-Reactive Protein 121.87 H (< 5.00) mg/L B-Natriuretic Peptide 346 H ( - 100) pg/mL Total Protein 6.7 (6.4-8.9) g/dL Albumin 3.7 (3.2-5.2) g/dL Globulin 3.0 (2-4) g/dL Albumin/Globulin Ratio 1.2 (1-3) Urine Color Urine Appearance Urine pH (5-9) Ur Specific [place] (1.010-1.030) Urine Protein (Negative) Urine Ketones (Negative) Urine Blood (Negative) Urine Nitrate (Negative) Urine Bilirubin (Negative) Urine Urobilinogen (Negative) Ur Leukocyte Esterase (Negative) Urine WBC (Auto) (Absent) Urine RBC (Auto) (Absent) Ur Squamous Epith Cells (Absent) Urine Bacteria (Absent) Urine Glucose (Negative) Urine Ascorbic Acid (Negative) Assess/Plan/Problems-Billing Assessment: 87 yo F with h/o JORGE LUIS, HTN, hypothyroidism, A. fib presents with recent dx of PNA and hyponatremia - Patient Problems (1) Hyponatremia Comment: due to dehydration, resolved after IVF today lower again. will check urine Na levels. Cont to monitor (2) Atrial fibrillation Comment: rate controled, cont Eliquis and cardizem (3) HTN (hypertension) Comment: controlled (4) Hypothyroidism Comment: TSH 1.9 , cont Synthroid (5) Pneumonia Comment: community acquired, dx as outpatient. Cont Doxy no infiltrate on CXR (6) Bronchospasm Comment: due to pneumonia, ? viral since procalcitonin low cont duonebs, but not improving as expected, will add Prednisone (7) DVT prophylaxis Comment: Eliquis Status and Disposition: inpatient, due to need of further tx of bronchospasm
[2017-05-16] MEDS: predniSONE TAB* 20 MG PO SCH (12:14)
[2017-05-16] MEDS: QUEtiapine TAB* 25 MG PO SCH (21:50)
[2017-05-17] MEDS: guaiFENesin LIQ* 100 MG/5 ML UDC PO PRN ×3 (01:53→19:24)
[2017-05-17] MEDS: Levothyroxine TAB* 75 MCG TAB PO SCH (07:25)
[2017-05-17 08:13] LABS: BUN/Creatinine Ratio 12.3 (8-20); EGFR African American 128.7 (>60); EGFR Non-African American 100.1 (>60)
[2017-05-17] MEDS: DOXYcycline CAP(*) 100 MG PO SCH ×2 (08:30→20:22)
[2017-05-17] MEDS: Ascorbic Acid TAB* 500 MG PO SCH (08:30)
[2017-05-17] MEDS: Diltiazem CD CAP* 120 MG PO SCH (08:31)
[2017-05-17] MEDS: Omeprazole CAP* 20 MG PO SCH (08:31)
[2017-05-17] MEDS: Aspirin Low Dose CHEW TAB* 81 MG PO SCH (08:31)
[2017-05-17] MEDS: Calcium/Vitamin D TAB 250/125* TAB PO SCH (08:31)
[2017-05-17] MEDS: Valsartan TAB* 80 MG PO SCH (08:32)
[2017-05-17] MEDS: Cholecalciferol TAB* 1000 UNITS PO SCH (08:32)
[2017-05-17] MEDS: predniSONE TAB* 20 MG PO SCH (08:32)
[2017-05-17] MEDS: Multivitamins/Minerals TAB PO SCH (08:32)
[2017-05-17] MEDS: Thiamine TAB* 100 MG TAB PO SCH (08:33)
[2017-05-17] MEDS: Apixaban* 5 MG TAB PO SCH ×2 (08:33→20:22)
--- NOTE | 2017-05-17 10:06 | PN ---
Subjective Date of Service: 05/17/17 Interval History: Feels better, ambulated down the hallway with a walker yesterday Objective Active Medications: Acetaminophen (Tylenol Tab*) 650 mg PO Q6H PRN PRN Reason: PAIN Last Admin: 05/16/17 15:20 Dose: 650 mg Albuterol (Ventolin 2.5 Mg/3 Ml Neb.Danica*) 2.5 mg INH Q4H PRN PRN Reason: SOB/WHEEZING Last Admin: 05/15/17 08:45 Dose: 2.5 mg Albuterol/Ipratropium (Duoneb (Albuterol 2.5 Mg/Ipratropium 0.5 Mg)) 1 neb INH Q4H PRN PRN Reason: SOB/WHEEZING Apixaban (Eliquis*) 5 mg PO BID [facility] Last Admin: 05/17/17 08:33 Dose: 5 mg Ascorbic Acid (Vitamin C Tab*) 1,000 mg PO DAILY [facility] Last Admin: 05/17/17 08:30 Dose: 1,000 mg Aspirin (Aspirin Low Dose Tab*) 81 mg PO DAILY [facility] Last Admin: 05/17/17 08:31 Dose: 81 mg Calcium/Vitamin D (Oscal D Tab 250/125*) 1 tab PO DAILY [facility] Last Admin: 05/17/17 08:31 Dose: 1 tab Cholecalciferol (Vitamin D Tab*) 2,000 units PO DAILY [facility] Last Admin: 05/17/17 08:32 Dose: 2,000 units Diltiazem HCl (Cardizem Cd Cap*) 120 mg PO DAILY [facility] Last Admin: 05/17/17 08:31 Dose: 120 mg Doxycycline Hyclate (Vibramycin Cap(*)) 100 mg PO BID [facility] Last Admin: 05/17/17 08:30 Dose: 100 mg Guaifenesin (Robitussin*) 5 ml PO Q4H PRN PRN Reason: COUGH Last Admin: 05/17/17 08:29 Dose: 5 ml Levothyroxine Sodium (Synthroid Tab*) 75 mcg PO 0600 [facility] Last Admin: 05/17/17 07:25 Dose: 75 mcg Metoprolol Succinate (Toprol Xl Tab*) 12.5 mg PO EVERY OTHER DAY [facility] Last Admin: 05/16/17 10:05 Dose: 12.5 mg Multivitamins/Minerals (Theragran/Minerals Tab*) 1 tab PO DAILY [facility] Last Admin: 05/17/17 08:32 Dose: 1 tab Omeprazole (Prilosec Cap*) 20 mg PO DAILY [facility] Last Admin: 05/17/17 08:31 Dose: 20 mg Ondansetron HCl (Zofran Odt Tab*) 4 mg SL Q6H PRN PRN Reason: NAUSEA/VOMITING Last Admin: 05/15/17 06:07 Dose: 4 mg Prednisone (Deltasone Tab*) 40 mg PO DAILY [facility] Last Admin: 05/17/17 08:32 Dose: 40 mg Quetiapine Fumarate (Seroquel Tab*) 12.5 mg PO BEDTIME [facility] Last Admin: 05/16/17 21:50 Dose: 12.5 mg Thiamine HCl (Vitamin B-1 Tab*) 100 mg PO DAILY [facility] Last Admin: 05/17/17 08:33 Dose: 100 mg Valsartan (Diovan Tab*) 80 mg PO DAILY [facility] Last Admin: 05/17/17 08:32 Dose: 80 mg Vital Signs 05/16/17 05/16/17 05/16/17 11:37 15:44 19:46 Temperature 97.8 F 97.5 F 97.8 F Pulse Rate 87 74 80 Respiratory 16 15 16 Rate Blood Pressure 125/61 134/74 144/65 (mmHg) O2 Sat by Pulse 100 98 97 Oximetry 05/16/17 05/16/17 05/17/17 20:00 23:35 04:20 Temperature Pulse Rate 85 79 Respiratory 20 18 18 Rate Blood Pressure 131/73 134/62 (mmHg) O2 Sat by Pulse 97 98 96 Oximetry 05/17/17 05/17/17 08:00 08:16 Temperature 98.3 F Pulse Rate 71 Respiratory 18 18 Rate Blood Pressure 128/67 (mmHg) O2 Sat by Pulse 100 Oximetry Oxygen Devices in Use Now: Nasal Cannula - at 2 L, 02 sat 100% Appearance: 87 yo F in nAD, aAOx3 Eyes: No Scleral Icterus, PERRLA Ears/Nose/Mouth/Throat: NL Teeth, Lips, Gums, Mucous Membranes Moist Neck: NL Appearance and Movements; NL JVP, Trachea Midline Respiratory: Symmetrical Chest Expansion and Respiratory Effort, - - crackles at b/l bases Cardiovascular: - - irregular Abdominal: NL Sounds; No Tenderness; No Distention, No Hepatosplenomegaly Lymphatic: No Cervical Adenopathy Extremities: No Edema, No Clubbing, Cyanosis Skin: No Rash or Ulcers, No Nodules or Sclerosis Neurological: Alert and Oriented x 3, NL Muscle Strength and Tone Result Diagrams: 05/16/17 05:25 05/17/17 07:51 Additional Lab and Data: Lab Results 05/14/17 05/14/17 05/14/17 Range/Units 12:15 12:15 12:15 WBC 10.4 (3.5-10.8) 10^3/ul RBC 3.94 L (4.0-5.4) 10^6/ul Hgb 13.2 (12.0-16.0) g/dl Hct 39 (35-47) % MCV 99 H (80-97) fL MCH 33 H (27-31) pg MCHC 34 (31-36) g/dl RDW 13 (10.5-15) % Plt Count 192 (150-450) 10^3/ul MPV 7 L (7.4-10.4) um3 Neut % (Auto) 81.3 (38-83) % Lymph % (Auto) 9.3 L (25-47) % [place] % (Auto) 8.7 (1-9) % Eos % (Auto) 0.4 (0-6) % Baso % (Auto) 0.3 (0-2) % Absolute Neuts (auto) 8.4 H (1.5-7.7) 10^3/ul Absolute Lymphs (auto) 1.0 (1.0-4.8) 10^3/ul Absolute Monos (auto) 0.9 H (0-0.8) 10^3/ul Absolute Eos (auto) 0 (0-0.6) 10^3/ul Absolute Basos (auto) 0 (0-0.2) 10^3/ul Absolute Nucleated RBC 0.01 10^3/ul Nucleated RBC % 0.1 INR (Anticoag Therapy) 1.15 H (0.89-1.11) APTT 23.9 L (26.0-36.3) seconds Sodium (133-145) mmol/L Potassium (3.5-5.0) mmol/L Chloride (101-111) mmol/L Carbon Dioxide (22-32) mmol/L Anion Gap (2-11) mmol/L BUN (6-24) mg/dL Creatinine (0.51-0.95) mg/dL Est GFR ( Amer) (>60) Est GFR (Non-Af Amer) (>60) BUN/Creatinine Ratio (8-20) Glucose (70-100) mg/dL Calcium (8.6-10.3) mg/dL Total Bilirubin (0.2-1.0) mg/dL AST (13-39) U/L ALT (7-52) U/L Alkaline Phosphatase (34-104) U/L Troponin I (<0.04) ng/mL C-Reactive Protein (< 5.00) mg/L B-Natriuretic Peptide ( - 100) pg/mL Total Protein (6.4-8.9) g/dL Albumin (3.2-5.2) g/dL Globulin (2-4) g/dL Albumin/Globulin Ratio (1-3) Urine Color Yellow Urine Appearance Clear Urine pH 6.0 (5-9) Ur Specific [place] 1.015 (1.010-1.030) Urine Protein Negative (Negative) Urine Ketones 1+ H (Negative) Urine Blood Negative (Negative) Urine Nitrate Negative (Negative) Urine Bilirubin Negative (Negative) Urine Urobilinogen Positive H (Negative) Ur Leukocyte Esterase Trace H (Negative) Urine WBC (Auto) Trace(0-5/hpf) (Absent) Urine RBC (Auto) Absent (Absent) Ur Squamous Epith Cells Present H (Absent) Urine Bacteria Absent (Absent) Urine Glucose Negative (Negative) Urine Ascorbic Acid * H (Negative) 05/14/17 05/14/17 Range/Units 12:15 12:15 WBC (3.5-10.8) 10^3/ul RBC (4.0-5.4) 10^6/ul Hgb (12.0-16.0) g/dl Hct (35-47) % MCV (80-97) fL MCH (27-31) pg MCHC (31-36) g/dl RDW (10.5-15) % Plt Count (150-450) 10^3/ul MPV (7.4-10.4) um3 Neut % (Auto) (38-83) % Lymph % (Auto) (25-47) % [place] % (Auto) (1-9) % Eos % (Auto) (0-6) % Baso % (Auto) (0-2) % Absolute Neuts (auto) (1.5-7.7) 10^3/ul Absolute Lymphs (auto) (1.0-4.8) 10^3/ul Absolute Monos (auto) (0-0.8) 10^3/ul Absolute Eos (auto) (0-0.6) 10^3/ul Absolute Basos (auto) (0-0.2) 10^3/ul Absolute Nucleated RBC 10^3/ul Nucleated RBC % INR (Anticoag Therapy) (0.89-1.11) APTT (26.0-36.3) seconds Sodium 120 L (133-145) mmol/L Potassium 4.3 (3.5-5.0) mmol/L Chloride 85 L (101-111) mmol/L Carbon Dioxide 28 (22-32) mmol/L Anion Gap 7 (2-11) mmol/L BUN 10 (6-24) mg/dL Creatinine 0.55 (0.51-0.95) mg/dL Est GFR ( Amer) 134.2 (>60) Est GFR (Non-Af Amer) 104.3 (>60) BUN/Creatinine Ratio 18.2 (8-20) Glucose 100 (70-100) mg/dL Calcium 8.8 (8.6-10.3) mg/dL Total Bilirubin 0.90 (0.2-1.0) mg/dL AST 35 (13-39) U/L ALT 38 (7-52) U/L Alkaline Phosphatase 92 (34-104) U/L Troponin I 0.02 (<0.04) ng/mL C-Reactive Protein 121.87 H (< 5.00) mg/L B-Natriuretic Peptide 346 H ( - 100) pg/mL Total Protein 6.7 (6.4-8.9) g/dL Albumin 3.7 (3.2-5.2) g/dL Globulin 3.0 (2-4) g/dL Albumin/Globulin Ratio 1.2 (1-3) Urine Color Urine Appearance Urine pH (5-9) Ur Specific [place] (1.010-1.030) Urine Protein (Negative) Urine Ketones (Negative) Urine Blood (Negative) Urine Nitrate (Negative) Urine Bilirubin (Negative) Urine Urobilinogen (Negative) Ur Leukocyte Esterase (Negative) Urine WBC (Auto) (Absent) Urine RBC (Auto) (Absent) Ur Squamous Epith Cells (Absent) Urine Bacteria (Absent) Urine Glucose (Negative) Urine Ascorbic Acid (Negative) Assess/Plan/Problems-Billing Assessment: 87 yo F with h/o JORGE LUIS, HTN, hypothyroidism, A. fib presents with recent dx of PNA and hyponatremia - Patient Problems (1) Hyponatremia Comment: resolved. due to dehydration (2) Atrial fibrillation Comment: rate controled, cont Eliquis and cardizem (3) HTN (hypertension) Comment: controlled (4) Hypothyroidism Comment: TSH 1.9 , cont Synthroid (5) Pneumonia Comment: community acquired, dx as outpatient. Cont Doxy(7 days tx ends on 05/18/17) no infiltrate on CXR (6) Bronchospasm Comment: due to pneumonia, ? viral since procalcitonin low cont duonebs , improved after the addition of Prednisone (7) DVT prophylaxis Comment: Eliquis Status and Disposition: inpatient, anticipated d/c tomorrow to [facility]
[2017-05-17] MEDS: QUEtiapine TAB* 25 MG PO SCH (20:22)
[2017-05-18] MEDS: guaiFENesin LIQ* 100 MG/5 ML UDC PO PRN ×2 (02:21→07:46)
[2017-05-18] MEDS: Levothyroxine TAB* 75 MCG TAB PO SCH (05:36)
[2017-05-18 07:43] VITALS: BP 137/81
[2017-05-18] MEDS: predniSONE TAB* 20 MG PO SCH (07:47)
[2017-05-18] MEDS: Omeprazole CAP* 20 MG PO SCH (07:47)
[2017-05-18] MEDS: Apixaban* 5 MG TAB PO SCH (07:47)
[2017-05-18] MEDS: Diltiazem CD CAP* 120 MG PO SCH (07:48)
[2017-05-18] MEDS: Ascorbic Acid TAB* 500 MG PO SCH (07:48)
[2017-05-18] MEDS: Thiamine TAB* 100 MG TAB PO SCH (07:49)
[2017-05-18] MEDS: Aspirin Low Dose CHEW TAB* 81 MG PO SCH (07:49)
[2017-05-18] MEDS: Metoprolol Succinate XL TAB* 25 MG PO SCH (07:49)
[2017-05-18] MEDS: Multivitamins/Minerals TAB PO SCH (07:51)
[2017-05-18] MEDS: Calcium/Vitamin D TAB 250/125* TAB PO SCH (07:51)
[2017-05-18] MEDS: Valsartan TAB* 80 MG PO SCH (07:51)
[2017-05-18] MEDS: Cholecalciferol TAB* 1000 UNITS PO SCH (07:51)
[2017-05-18] MEDS: DOXYcycline CAP(*) 100 MG PO SCH (07:52)
[2017-05-18] MEDS: Albuterol 2.5 MG/3 ML NEB.SOL* (0.083%) INH PRN (08:03)
--- NOTE | 2017-05-18 14:00 | DS ---
CC: Dr. Prakash; Dr. An * DISCHARGE SUMMARY: DATE OF ADMISSION: 05/14/17 DATE OF DISCHARGE: 05/18/17 PRIMARY CARE PROVIDER: Dr. Prakash. DISCHARGE DIAGNOSES: 1. Hyponatremia due to dehydration. 2. Pneumonia, possibly viral, it was treated as outpatient. Continuation of treatment was completed with 7 days' worth of doxycycline. 3. Bronchospasm. SECONDARY DIAGNOSES: 1. History of chronic atrial fibrillation, on anticoagulation with Eliquis. 2. Hypertension. 3. Anxiety. 4. Gastroesophageal reflux disease. 5. Hypothyroidism. 6. Degenerative disk disease. 7. Obstructive sleep apnea. MEDICATIONS AT DISCHARGE: Include: 1. Prednisone 10 mg tablet to take 3 tablets daily for 3 days, then 2 tablets daily for 3 days, then 1 tablet daily for 3 days, then stop. 2. Nebulizer treatment on a p.r.n. basis on oNeb. The remaining medications are unchanged and include: 1. Eliquis 5 mg b.i.d. 2. Vitamin C 1000 mg daily. 3. Aspirin 81 mg daily. 4. Calcium carbonate 1 tablet daily. 5. Vitamin D3 2000 units daily. 6. Cranberry 400 mg daily. 7. Diltiazem CD 120 mg daily. 8. Lasix 20 mg daily. 9. Synthroid 75 mcg daily. 10. Metoprolol succinate 12.5 mg every other day. 11. Multivitamin 1 tablet daily. 12. Omeprazole 20 mg daily. 13. Seroquel 12.5 mg at bedtime. 14. Thiamine 100 mg daily. 15. Tretinoin ointment 0.05% apply to face daily. 16. Diovan 80 mg daily. 17. Robitussin on a p.r.n. basis. LABORATORY DATA AND STUDIES PERFORMED DURING THE HOSPITAL STAY: On 05/16/17, white blood cell count 9.3, hemoglobin 12.1, hematocrit 36, platelets of 202, 000. On 05/17/17, sodium 133, potassium 4.0, chloride 94, carbon dioxide 34, BUN 7, creatinine 0.57. The patient's procalcitonin level was 0.1 on the day of admission. TSH was 1.94 on 05/14/17. Urinalysis showed trace esterase, +1 ketones, and absent bacteria. Urine random sodium level was below 18 performed on 05/16/17. Microbiology studies showed urine cultures that were negative and blood cultures that were negative. Portable chest x-ray obtained on admission, impression: "In the correct clinical setting, the radiographic findings could be compatible with exacerbation of CHF." HOSPITALIZATION COURSE: Alyson Cameron is an 87-year-old female with a history of paroxysmal atrial fibrillation on Eliquis, who was brought into the hospital after treatment for pneumonia as outpatient was started a couple of days earlier. She felt very poorly and she was noted to have significant hyponatremia with a sodium level of 120. The patient was treated with intravenous fluids and her sodium initially improved, then levelled off. Her fluid was discontinued due to continuation of hypoxemia and possibility of CHF. The patient was complaining of generalized weakness and she continued to use oxygen 2 L throughout her hospital stay. She was noted to have marked bronchospasm and she was started on steroids a couple of days prior to discharge. Nebulizers were also utilized and that is to be continued at discharge. During the patient's hospital stay, patient finished a course of 7 days of doxycycline on 05/18/17. Please also note that the patient's procalcitonin level of below detectable makes possibility of bacterial pneumonia less likely. By the time of discharge, patient's p.o. intake was improved and she was taken off IV fluids. Her sodium also normalized to the level of 133 the day prior to discharge. Please also note that the patient's urine random sodium level was below 18 that indicated dehydration as a reason of patient's hyponatremia. At this time, the patient is going to be discharged at 2 L of oxygen nasal cannula with recommendation for the mcc to wean down the patient' oxygen as tolerated. The patient is going to be discharged to House at [facility] for further rehabilitation. PHYSICAL EXAMINATION: At the time of discharge blood pressure 137/81, heart rate 77 and irregularly regular, respiratory rate 15, oxygen saturation 100% on 2 L of oxygen nasal cannula, temperature 98.0. General: This is a very pleasant 87-year- old female, who is in no acute distress. Alert, awake, and oriented x3. HEENT: Head is atraumatic, normocephalic. Eyes: Pupils are equal and reactive to light and accommodation. Oropharynx clear. Mucosa moist. Neck: Supple. No JVD. No bruits bilaterally. Cardiovascular: Irregularly irregular rhythm. No murmur. Respiratory: Crackles at bilateral bases, otherwise clear Abdomen: Soft, nontender. Bowel sounds present in all 4 quadrants. Extremities: There is trace bilateral ankle edema. Pulses +2 bilaterally. No clubbing or cyanosis. Neuro Evaluation: Speech is clear. Cranial nerves II through XII grossly intact. Motor strength is 5/5 bilaterally. Please note that this is a short summary of the patient's hospital stay. Please refer to further medical records for details. Approximately 40 minutes were spent on the patient's discharge. [id number]/[facility] #: [id number] MTDD
== END 2017-05-18 13:25 | DRG 640 ==
LOC: ED 09:51 → MED 14:23 → OBSVTOIN 05-15 08:32
PROVIDERS: ADMIT Hospitalist; ATTEND Internal Medicine
DX: E87.1 Hypo-osmolality and hyponatremia (principal); J12.9 Viral pneumonia, unspecified; E86.0 Dehydration; I48.2 Chronic atrial fibrillation; I10 Essential (primary) hypertension; F41.9 Anxiety disorder, unspecified; E03.9 Hypothyroidism, unspecified; G47.33 Obstructive sleep apnea (adult) (pediatric); J98.01 Acute bronchospasm; K21.9 Gastro-esophageal reflux disease without esophagitis; M51.36 Other intervertebral disc degeneration, lumbar region; Z79.1 Long term (current) use of non-steroidal anti-inflammatories (NSAID); Z79.01 Long term (current) use of anticoagulants; Z79.82 Long term (current) use of aspirin; Z79.899 Other long term (current) drug therapy; Z88.5 Allergy status to narcotic agent; Z82.5 Family history of asthma and other chronic lower respiratory diseases
CPT/HCPCS: 36415; 71010; 80048; 80053; 81003; 81015; 83605; 83880; 83930; 84145; 84300; 84443; 84484; 85025; 85027; 85610; 85730; 86140; 87040; 87086; 93005; 94640; 94660; 94760; A9270-GY; G0378; J1940; J2405; J7512

== ENCOUNTER 2018-06-02 15:28 | Emergency (ER) | payer MEDICARE, OTHER ==
[2018-06-02] MEDS ORDERED: Acetaminophen TAB* 325 MG PO ONE (15:47)
--- NOTE | 2018-06-02 16:25 | RAD ---
Indication: Head injury. CT of the brain was performed without IV contrast. Ventricular structures are midline. No midline shift is noted. The extra-axial spaces are unremarkable. There is no evidence of intracranial mass or hemorrhage. No other high or low density lesions are identified. Mastoid air cells and paranasal sinuses are clear. When compared to previous exam of October 31, 2016 no significant change is noted. IMPRESSION: No intracranial mass or hemorrhage is noted.
--- OUTSIDE RECORDS SUMMARY | 2018-06-02 16:32 | XMS REPORT ---
:1930 External Reference #:[id number] Author Organization [employer] Address [address] [place] [address] [place] [address] Phone [phone] Care Team Providers Name Role Phone Pradip Prakash MD Primary Care Physician Unavailable Payers Type Date Identification Numbers Payment Provider Subscriber Medicare Primary Policy Number: [id number] Medicare Alyson Peralta PayID: [id number] [address] [place] [address] Medigap Part B Effective: Policy Number: [employer] Alyson Carias 2016 [id number] Nisha PayID: [id number] [address] [place] [address] Commercial Policy Number: [id number] [facility] Alyson Peralta PayID: [id number] [place] [address] Problems Date Description Provider Status Onset: 05/19/2012 Breast signs and symptoms Kelly Muniz, N.P. Active Onset: 06/12/2016 Disturbance in sleep behavior Estelle Marrufo MD Active Onset: 06/12/2016 Hypoxemia Estelle Marrufo MD Active Onset: 07/26/2016 Obstructive sleep apnea syndrome Estelle Marrufo MD Active Onset: 07/26/2016 Obesity Estelle Marrufo MD Active Family History Date Family Member(s) Problem(s) Comments General non contributory Father due to Heart Disease () - at age 67 Mother due to Stroke () - at age 82 Siblings 2 Siblings no known cardiac issues Social History Type Date Description Comments Marital Status Lives With 02/27/2016 Alone has dementia and lives in the assisted care location [facility] Occupation Retired Cigarette Use Never Smoked Cigarettes ETOH Use Drinks 1 Alcoholic Beverage Per Day Smoking Patient has never smoked Recreational Drug Use Denies Drug Use Daily Caffeine Consumes on average 2 cups of regular coffee per day Exercise Type/Frequency Exercises rarely Allergies, Adverse Reactions, Alerts Date Description Reaction Status Severity Comments 05/19/2012 Morphine Malaise active Medications Medication Date Status Form Strength Qnty SIG Indications Ordering Provider Nystatin 12/23 Active Ointment [id number] 15gm apply to B37.2 Samira t/GM affected [place], area twice DIRECTOR PHYSICAL a day for 5 days and then use 1-2 times a day as needed Valsartan 12/11 Active Tablets 40mg 90tab 1 by mouth Kye s every day Pablito An M.D. Guaifenesin 05/12 Active Liquid 100mg/5ML 473ml 5 J18.9 Mag[facility] milliliter Destini, s by mouth N.P. every 4 hours as needed for cough Tretinoin 10/21 Active Cream 0.05% apply topically Ordering qd to Provider face; Rx'd by Dr. Boris Shah Levothyroxine Active Tablets 75mcg take one Sktuan, / tab po MD Pradip before breakfast Diltiazem HCL ER Active Caps ER 12HR 120mg 1 by mouth Skezas, /0000 every day MD Pradip Am Omeprazole Active Capsules DR 20mg 30cap 1 by mouth Magali /0000 s every day Deon Georges N.P. Vitamin B1 Active Tablets 100mg 1 tablet Skezas, /0000 po daily MD Pradip PM Vitamin C Active Tablets 1000mg 1 by mouth Andreezjono, /0000 every day MD Pradip Am Vitamin D3 Super Active Tablets 2000Unit 90tab 1 tab po Mag[facility] Strength /0000 s qd PM Destini, N.P. Seroquel Active Tablets 25mg 1/2 by Unknown /0000 mouth every day PM Tylenol Active Tablets 650mg 2 tabs po Unknown Arthritis / bid Multiple Vitamin Active Tablets 1 by mouth Andreezjono, /0000 every day MD Pradip Cranberry Active Capsules 250mg 1 tabs Unknown /0000 daily Furosemide Active Tablets 40mg 60tab 2 by mouth Kye / s every F. morning Duane An Milk Of Magnesia Active Suspension 7.75% 30 Unknown milliliter s oral every day as needed for constipati on. Dulcolax Active Suppository 10mg as needed Ipratropium Active Solution 0.5-2.5(3 1 vial in Unknown [place]/Albutero / )mg/3ML nebulizer l Sulfate every 4 hours as needed for SOB/wheezi ng Eliquis Active Tablets 5mg 1 by mouth twice a day Mylanta Active Suspension 200-200-2 15ml by 0mg/5ML mouth every 4 hours for dyspepsia Acetaminophen Active Tablets 325mg 2 tablets Unknown by mouth every 6 hours as needed for pain/fever Calcium Active Chewtabs 1250(500C 1 by mouth Unknown Carbonate a) mg noe Metoprolol Active Tablets 25mg 90tab 1 tab by Kye Tartrate / s mouth F. every Mauser, morning M.D. Oxygen Active Misc used at night Nystatin 12/05 Hx Cream [id number] 15gm apply thin B37.2 t/GM layer to Bowman, - right and M.D. 12/23 left groin /2018 and external labia twice a day for 2 weeks. Biofreeze 09/05 Hx Gel 4% 74ml Apply M54.5 Samira Roll-On topically [place], - to DIRECTOR PHYSICAL 09/05 affected area every morning and evening and as needed for muscle spasms. Biofreeze 09/05 Hx Gel 4% 89ml Apply M54.5 Samira Colorless topically [place], - to DIRECTOR PHYSICAL 12/21 affected area up to four times a day as needed for muscle spasms Metoprolol 05/26 Hx Tablets ER 25mg 30tab 1/2 tab by I48.2 Kye Succinate ER 24HR s mouth F. - every Mauser, 10/12 other day M.D. /2016 Doxycycline 05/12 Hx Tablets 100mg 20tab 1 tab by J18.9 Mag[facility] Hyclate /2016 s mouth Destini, - twice a N.P. 05/25 day x days Bactrim DS 11/12 Hx Tablets 800-160mg 6tabs twice N39.0 Magali daily for Destini, - 3 days N.P. 03/05 Sulfamethoxazole 10/22 Hx Tablets 800-160mg 10tab take 1 Micky /Trimethoprim DS s tablet [place], - twice a DIRECTOR PHYSICAL 11/05 day for days Metoprolol 07/24 Hx Tablets ER 25mg 45tab /2 by R00.2 Kye Succinate ER 24HR s mouth F. - every Mauser, 05/25 other day M.D. (odd days) Aspir-Low 06/[address] 81mg 1 by mouth every day - 09/05 Metoprolol 05/21 Hx Tablets ER 25mg 30tab 1 by mouth R00.2 Kye Succinate ER 24HR s every day F. - Mauser, 07/24 M.D. Periguard 03/19 Hx Ointment 720gm as directed Destini, - N.P. 09/05 Tretinoin 03/19 Hx Cream 0.05% 45gm once a day Destini, - N.P. 03/22 Bactrim DS 03/07 Hx Tablets 800-160mg 10tab twice N39.0 Magali s daily for Destini, - 5 days N.P. 03/19 Aquaphor 11/21 Hx Ointment 1Tube Apply to L20.9 Micky Advanced Therapy /[address] [place], - daily DIRECTOR PHYSICAL 09/05 until cleared Bactrim DS 11/03 Hx Tablets 800-160mg 6tabs twice N39.0 Magali /2014 daily for Destini, - 3 days N.P. 02/25 Bactrim DS 07/24 Hx Tablets 800-160mg 6tabs twice N39.0 Magali /2014 daily for Destini, - 3 days N.P. 11/03 Sulfamethoxazole 03/02 Hx Tablets 800-160mg 6tabs take 1 599.0 Magali /Trimethoprim DS tablet Destini, - twice a N.P. 05/26 day for days Sulfamethoxazole 03/02 Hx Tablets 800-160mg 6tabs take 1 599.0 Magali /Trimethoprim DS tablet Destini, - twice a N.P. 05/26 day for days Acetaminophen 02/23 Hx Tablets 325mg 60tab 2 tablets Curtis S. s by mouth Tucker, - every 6 M.D. 08/31 hours needed for pain/fever Sulfamethoxazole 12/09 Hx Tablets 800-160mg 6tabs take 1 599.0 Micky /Trimethoprim DS tablet [place], - twice a DIRECTOR PHYSICAL 01/29 day for days Phenazopyridine 12/09 Hx Tablets 100mg 6tabs 1 tablet 788.1 Micky HCL by mouth [place], - three DIRECTOR PHYSICAL 01/29 times day x's 2 days. will turn urine orange Zolpidem Hx Tablets 5mg one tab q Unknown Tartrate /0000 hs - 05/26 Butalbital Hx Tablets 50-325-40 one cap po Unknown Compound /0000 mg q6 hrs prn - 01/[address] 40mg one tab po Unknown /0000 qam - 01/29 Amlodipine Hx Tablets 5mg 90tab take one Unknown Besylate /0000 s tab daily - for htn 05/26 Premarin Hx Cream 0.625mg/G Unknown /0000 M - 01/29 Hydroquinone 00 Hx Cream 4% apply to Unknown /0000 affected - areas as 01/29 Aspir-81 00/ Hx Tablets DR 81mg chew one Unknown /0000 tab po - qday 05/26 Calcium 600 + 00 Hx Tablets 600-200mg take 2 Unknown Minerals /0000 -Unit tabs daily - 01/29 Diovan Hx Tablets 80mg 1 tab by Unknown /0000 mouth qd - 08/31 Acetaminophen 00 Hx Suppository 650mg 1 rectally Unknown /0000 every 6 - hours as 05/26 needed for minor pain or elevated temp Bisac-Evac 00 Hx Suppository 10mg 1 supp per Unknown /0000 rectum, in - the 05/26 morning the 4th day if mom is ineffectiv e Oyster Shell Hx Tablets 500mg 1 tab po Unknown Calcium /0000 daily - 07/23 Quetiapine Hx Tablets 50mg 1 tab po Unknown Fumarate /0000 bid - 05/26 Tab-A-Velma Hx Tablets 1 by mouth Unknown /0000 every day - 11/03 Aspir-Low Hx Tablets DR 81mg 1 tab po Unknown /0000 qd - 08/31 Ecotrin Low Hx Tablets DR 81mg 1 tab po Skezas, Strength /0000 qd Am MD Pradip - 05/26 Tretinoin Hx Cream 0.05% appy to Unknown /0000 affected - area q hs 11/03 Valsartan Hx Tablets 80mg 1/2 tab q Kye /0000 am Pablito An, 12/11 Duane /2017 Calcium Hx Tablets 1250(500C 1 tablet Skezas, Carbonate /0000 a) mg po daily MD Pradip - PM 05/25 C Pap Hx set at Unknown /0000 13-6 per - Dr. An 09/05 Prednisone Hx Tablets 10mg take 1 tab Unknown /0000 by mouth - for 3 days 07/16 then (05/28/17) Aspirin Hx Chewtabs 81mg 1 by mouth Unknown Childrens /0000 every day - 05/18 Medications Administered in Office Medication Date Status Form Strength Qnty SIG Indications Ordering Provider Inj, Administered Injection Aris Larose Regadenoson, 018 Volodymyr, 0.1 MG M.DShanita, FACJacquelin, FASNC Technetium TC Administered Injection Aris Larose 99M 018 Volodymyr TetrofosminDuane, FACJacquelin, Per Unit Dose FASNC Up To 40 Millicuries Depomedrol Administered Injection Dirk Jacqueline, 40MG 016 M.DShanita Inj, Administered Injection Ciro Rico Regadenoson, 016 Conrad, 0.1 MG FACC Inj, Administered Injection Catherine Pimentel, Regadenoson, 016 PA 0.1 MG Technetium TC Administered Injection Ciro S. 99M 016 Martines, Tetrofosmin, FACC Per Unit Dose Up To 40 Millicuries Technetium TC Administered Injection Catherine Pimentel, 99M 016 PA Tetrofosmin, Per Unit Dose Up To 40 Millicuries Vital Signs Date Vital Result Comment 05/18/2018 Height 62 inches 5'2" Weight 196.00 lb w/shoes Heart Rate 74 /min BP Systolic Sitting 110 mmHg lue reg cuff BP Diastolic Sitting 62 mmHg lue reg cuff BMI (Body Mass Index) 35.8 kg/m2 Ejection Fraction 65-70% echo 02/27/2018 05/08/2018 Weight 199.25 lb Heart Rate 77 /min BP Systolic Sitting 100 mmHg BP Diastolic Sitting 66 mmHg Respiratory Rate 20 /min Body Temperature 97.9 F O2 % BldC Oximetry 98 % 03/06/2018 Height 62 inches 5'2" Weight 197.00 lb with shoes Heart Rate 84 /min BP Systolic Sitting 120 mmHg Lue lg cuff BP Diastolic Sitting 60 mmHg Lue lg cuff BP Systolic Standing 120 mmHg BP Diastolic Standing 76 mmHg Respiratory Rate 20 /min O2 % BldC Oximetry 94 % at room air BMI (Body Mass Index) 36.0 kg/m2 Ejection Fraction 65-70% date 02/27/18 ECHO 02/09/2018 Height 62 inches 5'2" Weight 201.25 lb Heart Rate 72 /min BP Systolic Sitting 138 mmHg BP Diastolic Sitting 80 mmHg BMI (Body Mass Index) 36.8 kg/m2 Ejection Fraction 55%-60% 06/09/2017 echo 01/20/2018 Weight 195.00 lb Heart Rate 72 /min BP Systolic Sitting 120 mmHg BP Diastolic Sitting 64 mmHg Respiratory Rate 18 /min Body Temperature 97.6 F O2 % BldC Oximetry 96 % 01/09/2018 Weight 194.12 lb Heart Rate 80 /min BP Systolic Sitting 122 mmHg BP Diastolic Sitting 66 mmHg Respiratory Rate 18 /min Body Temperature 97.4 F O2 % BldC Oximetry 95 % 12/23/2017 Weight 195.00 lb Heart Rate 82 /min BP Systolic Sitting 124 mmHg BP Diastolic Sitting 64 mmHg Respiratory Rate 20 /min Body Temperature 97.7 F O2 % BldC Oximetry 97 % 12/22/2017 Height 62.5 inches 5'2.50" Weight 193.00 lb Heart Rate 76 /min BP Systolic Sitting 118 mmHg BP Diastolic Sitting 70 mmHg Respiratory Rate 14 /min O2 % BldC Oximetry 97 % BMI (Body Mass Index) 34.7 kg/m2 12/05/2017 Weight 193.00 lb Heart Rate 74 /min BP Systolic 120 mmHg BP Diastolic 74 mmHg Respiratory Rate 16 /min Body Temperature 97.9 F O2 % BldC Oximetry 98 % 10/30/2017 Height 62 inches 5'2" Weight 192.00 lb with shoes Heart Rate 80 /min BP Systolic Sitting 110 mmHg Lue reg cuff BP Diastolic Sitting 80 mmHg Lue reg cuff BP Systolic Standing 110 mmHg Lue reg cuff BP Diastolic Standing 74 mmHg Lue reg cuff Respiratory Rate 17 /min BMI (Body Mass Index) 35.1 kg/m2 Ejection Fraction 55-60% date 06/09/2017 ECHO 09/30/2017 Height 62 inches 5'2" Weight 191.12 lb with shoes Heart Rate 88 /min BP Systolic Sitting 146 mmHg LA reg cuff BP Diastolic Sitting 88 mmHg LA reg cuff BP Systolic Standing 131 mmHg la repeat sitting BP Diastolic Standing 72 mmHg la repeat sitting BMI (Body Mass Index) 35.0 kg/m2 Ejection Fraction 55% - 60% 09/05/2017 Weight 188.12 lb Heart Rate 86 /min BP Systolic Sitting 126 mmHg BP Diastolic Sitting 60 mmHg Respiratory Rate 16 /min Body Temperature 98.6 F Pain Level 0 O2 % BldC Oximetry 95 % 07/16/2017 Weight 185.00 lb Heart Rate 76 /min BP Systolic 118 mmHg BP Diastolic 70 mmHg Respiratory Rate 18 /min Body Temperature 98.7 F O2 % BldC Oximetry 94 % 05/27/2017 Heart Rate 82 /min BP Systolic Sitting 118 mmHg BP Diastolic Sitting 64 mmHg Respiratory Rate 14 /min Pain Level 0 O2 % BldC Oximetry 93 % 05/26/2017 Height 62 inches 5'2" Weight 179.75 lb with shoes Heart Rate 92 /min BP Systolic Sitting 116 mmHg Ra reg cuff BP Diastolic Sitting 64 mmHg Ra reg cuff BMI (Body Mass Index) 32.9 kg/m2 Ejection Fraction 60% - 65% echo 05/17/17 05/14/2017 Weight 191.12 lb Heart Rate 100 /min BP Systolic Sitting 160 mmHg BP Diastolic Sitting 90 mmHg Respiratory Rate 24 /min Body Temperature 99.1 F O2 % BldC Oximetry 93 % 05/12/2017 Weight 190.00 lb Heart Rate 88 /min BP Systolic Sitting 128 mmHg BP Diastolic Sitting 60 mmHg Respiratory Rate 24 /min Body Temperature 100.8 F O2 % BldC Oximetry 92 % 04/17/2017 Height 62 inches 5'2" Weight 189.25 lb with shoes Heart Rate 66 /min BP Systolic Sitting 152 mmHg LA reg cuff BP Diastolic Sitting 84 mmHg LA reg cuff BP Systolic Standing 118 mmHg la repeAT sitting la. BP Diastolic Standing 60 mmHg la repeAT sitting la. BMI (Body Mass Index) 34.6 kg/m2 Ejection Fraction 60% - 65% echo 05/17/16 03/05/2017 Weight 190.00 lb Heart Rate 84 /min BP Systolic Sitting 136 mmHg BP Diastolic Sitting 80 mmHg Respiratory Rate 20 /min Body Temperature 98.6 F O2 % BldC Oximetry 94 % 12/13/2016 Weight 186.00 lb Heart Rate 89 /min BP Systolic 120 mmHg BP Diastolic 70 mmHg Respiratory Rate 16 /min O2 % BldC Oximetry 97 % 11/12/2016 Weight 186.12 lb Heart Rate 82 /min BP Systolic Sitting 136 mmHg BP Diastolic Sitting 84 mmHg Respiratory Rate 18 /min Body Temperature 98.2 F O2 % BldC Oximetry 98 % 11/05/2016 Weight 181.12 lb Heart Rate 98 /min 10 minutes later 80 BP Systolic Sitting 124 mmHg BP Diastolic Sitting 64 mmHg Respiratory Rate 20 /min Body Temperature 98.8 F O2 % BldC Oximetry 97 % 10/30/2016 Height 62 inches 5'2" Weight 188.00 lb Heart Rate 64 /min BP Systolic Sitting 118 mmHg BP Diastolic Sitting 60 mmHg Respiratory Rate 16 /min Pain Level 6 BMI (Body Mass Index) 34.4 kg/m2 10/21/2016 Weight 188.00 lb Heart Rate 80 /min BP Systolic 118 mmHg BP Diastolic 64 mmHg Respiratory Rate 20 /min Body Temperature 98.2 F 09/11/2016 Height 62 inches 5'2" Weight 180.00 lb Heart Rate 55 /min BP Systolic 134 mmHg BP Diastolic 72 mmHg Respiratory Rate 14 /min O2 % BldC Oximetry 97 % BMI (Body Mass Index) 32.9 kg/m2 09/05/2016 Weight 183.38 lb Heart Rate 76 /min BP Systolic Sitting 138 mmHg BP Diastolic Sitting 70 mmHg Respiratory Rate 20 /min Body Temperature 98.6 F O2 % BldC Oximetry 93 % 08/27/2016 Height 62 inches 5'2" Weight 183.50 lb with sandals Heart Rate 70 /min BP Systolic Sitting 112 mmHg Ra reg cuff BP Diastolic Sitting 62 mmHg Ra reg cuff Respiratory Rate 15 /min BMI (Body Mass Index) 33.6 kg/m2 Ejection Fraction 60-65% 05/17/2016 07/26/2016 Height 62 inches 5'2" Weight 181.75 lb Heart Rate 72 /min Respiratory Rate 130 /min 72 O2 % BldC Oximetry 96 % BMI (Body Mass Index) 33.2 kg/m2 07/24/2016 Height 62 inches 5'2" Weight 181.75 lb with shoes Heart Rate 66 /min BP Systolic Sitting 126 mmHg LA reg cuff BP Diastolic Sitting 70 mmHg LA reg cuff Respiratory Rate 16 /min BMI (Body Mass Index) 33.2 kg/m2 Ejection Fraction 60-65% date 05/17/16 ECHO 06/12/2016 Height 62 inches 5'2" Weight 175.00 lb per pt Heart Rate 65 /min BP Systolic Sitting 140 mmHg BP Diastolic Sitting 86 mmHg Respiratory Rate 18 /min O2 % BldC Oximetry 96 % BMI (Body Mass Index) 32.0 kg/m2 Neck Circumference in inches 16 05/21/2016 Height 62 inches 5'2" Weight 182.00 lb with shoes Heart Rate 74 /min BP Systolic Sitting 136 mmHg Ra lrg cuff BP Diastolic Sitting 64 mmHg Ra lrg cuff BP Systolic Standing 140 mmHg Ra lrg cuff BP Diastolic Standing 66 mmHg Ra lrg cuff Respiratory Rate 17 /min BMI (Body Mass Index) 33.3 kg/m2 Ejection Fraction 60-65% 05/17/16 03/19/2016 Weight 179.38 lb Heart Rate 73 /min BP Systolic Sitting 130 mmHg BP Diastolic Sitting 60 mmHg Respiratory Rate 16 /min Body Temperature 98.5 F O2 % BldC Oximetry 96 % 03/07/2016 Weight 178.00 lb Heart Rate 74 /min BP Systolic Sitting 140 mmHg BP Diastolic Sitting 60 mmHg Respiratory Rate 18 /min Body Temperature 98.4 F O2 % BldC Oximetry 97 % 02/27/2016 Height 62 inches 5'2" Weight 178.75 lb Heart Rate 84 /min BP Systolic Sitting 142 mmHg LA, reg BP Diastolic Sitting 58 mmHg LA, reg BMI (Body Mass Index) 32.7 kg/m2 Ejection Fraction 55%-60% 12/28/15 02/09/2016 Weight 186.00 lb Heart Rate 78 /min BP Systolic Sitting 146 mmHg BP Diastolic Sitting 64 mmHg Respiratory Rate 20 /min Body Temperature 98.5 F O2 % BldC Oximetry 95 % 11/21/2015 Weight 178.25 lb Heart Rate 81 /min irreg BP Systolic 126 mmHg BP Diastolic 56 mmHg Respiratory Rate 24 /min Body Temperature 98.1 F O2 % BldC Oximetry 94 % 11/03/2015 Weight 176.00 lb Heart Rate 70 /min BP Systolic Sitting 144 mmHg BP Diastolic Sitting 70 mmHg Respiratory Rate 16 /min Body Temperature 97.8 F O2 % BldC Oximetry 93 % 10/11/2015 Weight 173.50 lb Heart Rate 72 /min BP Systolic Sitting 124 mmHg BP Diastolic Sitting 64 mmHg Respiratory Rate 18 /min Body Temperature 97.9 F O2 % BldC Oximetry 94 % 08/31/2015 Weight 171.38 lb Heart Rate 62 /min BP Systolic Sitting 146 mmHg BP Diastolic Sitting 64 mmHg Respiratory Rate 12 /min Body Temperature 97.4 F 07/24/2015 Heart Rate 69 /min BP Systolic Sitting 130 mmHg BP Diastolic Sitting 54 mmHg Respiratory Rate 18 /min Body Temperature 96.4 F 05/26/2015 Weight 164.50 lb Heart Rate 68 /min BP Systolic Sitting 134 mmHg BP Diastolic Sitting 60 mmHg Respiratory Rate 18 /min Body Temperature 96.5 F O2 % BldC Oximetry 97 % 02/23/2015 Height 62 inches 5'2" Weight 164.00 lb Heart Rate 68 /min BP Systolic Sitting 128 mmHg BP Diastolic Sitting 60 mmHg Respiratory Rate 16 /min BMI (Body Mass Index) 30.0 kg/m2 02/02/2015 Heart Rate 66 /min BP Systolic 120 mmHg BP Diastolic 66 mmHg Respiratory Rate 18 /min Body Temperature 96.9 F O2 % BldC Oximetry 95 % 12/09/2014 Heart Rate 71 /min irreg BP Systolic 150 mmHg BP Diastolic 74 mmHg Respiratory Rate 24 /min Body Temperature 98.8 F 11/19/2013 Heart Rate 76 /min BP Systolic 126 mmHg BP Diastolic 66 mmHg Respiratory Rate 16 /min Body Temperature 98.2 F 11/04/2013 Height 61.5 inches 5'1.50" Weight 174.00 lb Heart Rate 68 /min BP Systolic 130 mmHg BP Diastolic 68 mmHg Respiratory Rate 18 /min Body Temperature 98.3 F BMI (Body Mass Index) 32.3 kg/m2 03/18/2013 Heart Rate 65 /min BP Systolic 126 mmHg BP Diastolic 64 mmHg Respiratory Rate 20 /min Body Temperature 97.6 F 01/19/2013 Height 60.25 inches 5'0.25" Weight 176.00 lb Heart Rate 71 /min BP Systolic 128 mmHg BP Diastolic 70 mmHg Respiratory Rate 24 /min Body Temperature 97.9 F BMI (Body Mass Index) 34.1 kg/m2 05/19/2012 Height 61 inches 5'1" Weight 175.00 lb Heart Rate 64 /min BP Systolic 140 mmHg BP Diastolic 70 mmHg Respiratory Rate 26 /min Body Temperature 98.3 F BMI (Body Mass Index) 33.1 kg/m2 Results Test Date Test Result H/L Range Note Comp Metabolic Panel 02/16/2018 Sodium 137 mmol/L 133-145 1 Potassium 4.4 mmol/L 3.5-5.0 1 Chloride 98 mmol/L Low 101-111 1 Co2 Carbon Dioxide 31 mmol/L 22-32 1 Anion Gap 8 mmol/L 2-11 1 Glucose 132 mg/dL High 70-100 1 Blood Urea Nitrogen 24 mg/dL 6-24 1 Creatinine 0.91 mg/dL 0.51-0.95 1 BUN/Creatinine Ratio 26.4 High 8-20 1 Calcium 9.4 mg/dL 8.6-10.3 1 Total Protein 6.3 g/dL Low 6.4-8.9 1 Albumin 3.9 g/dL 3.2-5.2 1 Globulin 2.4 g/dL 2-4 1 Albumin/Globulin Ratio 1.6 1-3 1 Total Bilirubin 0.60 mg/dL 0.2-1.0 1 Alkaline Phosphatase 52 U/L 34-104 1 Alt 21 U/L 7-52 1 Ast 24 U/L 13-39 1 Egfr Non- 58.2 >60 1 Egfr 74.9 >60 1, 2 CBC Auto Diff 02/16/2018 White Blood Count 7.1 10^3/uL 3.5-10.8 1 Red Blood Count 4.11 10^6/uL 4.0-5.4 1 Hemoglobin 14.2 g/dL 12.0-16.0 1 Hematocrit 42 % 35-47 1 Mean Corpuscular Volume 102 fL High 80-97 1 Mean Corpuscular Hemoglobin 35 pg High 27-31 1 Mean Corpuscular HGB Conc 34 g/dL 31-36 1 Red Cell Distribution Width 13 % 10.5-15 1 Platelet Count 197 10^3/uL 150-450 1 Mean Platelet Volume 8 um3 7.4-10.4 1 Abs Neutrophils 4.9 10^3/uL 1.5-7.7 1 Abs Lymphocytes 1.3 10^3/uL 1.0-4.8 1 Abs Monocytes 0.6 10^3/uL 0-0.8 1 Abs Eosinophils 0.2 10^3/uL 0-0.6 1 Abs Basophils 0 10^3/uL 0-0.2 1 Abs Nucleated RBC 0 10^3/uL 1 Granulocyte % 69.3 % 38-83 1 Lymphocyte % 18.5 % Low 25-47 1 Monocyte % 8.1 % High 0-7 1 Eosinophil % 3.4 % 0-6 1 Basophil % 0.7 % 0-2 1 Nucleated Red Blood Cells % 0.1 1 Laboratory test finding 02/16/2018 B-Type Natriuretic Peptide 166 pg/mL High 1, 3 BNP Magnesium 2.0 mg/dL 1.9-2.7 1, 4 TSH (Thyroid Stim Horm) 1.64 mcIU/mL 0.34-5.60 1, 5 Laboratory test 04/21/2017 B-Type Natriuretic 117 pg/mL High 6, 7 finding Peptide BNP CBC Auto Diff 04/21/2017 White Blood Count 6.8 10^3/uL 3.5-10.8 6 Red Blood Count 4.67 10^6/uL 4.0-5.4 6 Hemoglobin 15.5 g/dL 12.0-16.0 6 Hematocrit 47 % 35-47 6 Mean Corpuscular Volume 100 fL High 80-97 6 Mean Corpuscular Hemoglobin 33 pg High 27-31 6 Mean Corpuscular HGB Conc 33 g/dL 31-36 6 Red Cell Distribution Width 14 % 10.5-15 6 Platelet Count 213 10^3/uL 150-450 6 Mean Platelet Volume 8 um3 7.4-10.4 6 Abs Neutrophils 4.4 10^3/uL 1.5-7.7 6 Abs Lymphocytes 1.5 10^3/uL 1.0-4.8 6 Abs Monocytes 0.7 10^3/uL 0-0.8 6 Abs Eosinophils 0.3 10^3/uL 0-0.6 6 Abs Basophils 0.1 10^3/uL 0-0.2 6 Abs Nucleated RBC 0 10^3/uL 6 Granulocyte % 64.5 % 38-83 6 Lymphocyte % 21.3 % Low 25-47 6 Monocyte % 9.7 % High 1-9 6 Eosinophil % 3.7 % 0-6 6 Basophil % 0.8 % 0-2 6 Nucleated Red Blood Cells % 0 6 Lipid Panel - [facility] 04/21/2017 Creatine Kinase(CK) 36 U/L 10-223 6, 8 Comp Metabolic Panel 04/21/2017 Sodium 133 mmol/L 133-145 6 Potassium 4.2 mmol/L 3.5-5.0 6 Chloride 95 mmol/L Low 101-111 6 Co2 Carbon Dioxide 31 mmol/L 22-32 6 Anion Gap 7 mmol/L 2-11 6 Glucose 96 mg/dL 70-100 6 Blood Urea Nitrogen 16 mg/dL 6-24 6 Creatinine 0.80 mg/dL 0.51-0.95 6 BUN/Creatinine Ratio 20.0 8-20 6 Calcium 9.4 mg/dL 8.6-10.3 6 Total Protein 6.6 g/dL 6.4-8.9 6 Albumin 4.1 g/dL 3.2-5.2 6 Globulin 2.5 g/dL 2-4 6 Albumin/Globulin Ratio 1.6 1-3 6 Total Bilirubin 0.60 mg/dL 0.2-1.0 6 Alkaline Phosphatase 53 U/L 34-104 6 Alt 19 U/L 7-52 6 Ast 20 U/L 13-39 6 Egfr Non- 67.7 >60 6 Egfr 87.1 >60 6, 9 Lipid Profile (Trig/Chol/HDL) 04/21/2017 Triglycerides 87 mg/dL 6, 10 Cholesterol 144 mg/dL 6, 11 HDL Cholesterol 60.8 mg/dL 6, 12 LDL Cholesterol 66 mg/dL 6, 13 Laboratory test finding 04/21/2017 Magnesium 2.1 mg/dL 1.9-2.7 6, 14 TSH (Thyroid Stim Horm) 1.45 mcIU/mL 0.34-5.60 6, 15 Urinalysis Profile 11/20/2016 Urine Color Yellow 16 Urine Appearance Cloudy 16 Urine Specific [place] 1.016 1.010-1.030 16 Urine pH 7.0 5-9 16 Urine Urobilinogen Negative Negative 16 Urine Ketones Negative Negative 16 Urine Protein 1+(30 mg/dL) Negative 16 Urine Leukocytes 2+ Negative 16 Urine Blood 3+ Negative 16 Urine Nitrite Negative Negative 16 Urine Bilirubin Negative Negative 16 Urine Glucose Negative Negative 16 Urine White Blood Cell 3+(>20/hpf) Absent 16 Urine Red Blood Cell 3+(>10/hpf) Absent 16 Urine Bacteria 1+ Absent 16 Urine Culture And 11/20/2016 Urine Culture SEE RESULT BELOW 16, 17 Sensitivities CBC Auto Diff 11/11/2016 White Blood Count 7.6 10^3/uL 3.5-10.8 18 Red Blood Count 4.14 10^6/uL 4.0-5.4 18 Hemoglobin 14.1 g/dL 12.0-16.0 18 Hematocrit 42 % 35-47 18 Mean Corpuscular Volume 102 fL High 80-97 18 Mean Corpuscular Hemoglobin 34 pg High 27-31 18 Mean Corpuscular HGB Conc 33 g/dL 31-36 18 Red Cell Distribution Width 13 % 10.5-15 18 Platelet Count 214 10^3/uL 150-450 18 Mean Platelet Volume 8 um3 7.4-10.4 18 Abs Neutrophils 5.1 10^3/uL 1.5-7.7 18 Abs Lymphocytes 1.7 10^3/uL 1.0-4.8 18 Abs Monocytes 0.5 10^3/uL 0-0.8 18 Abs Eosinophils 0.2 10^3/uL 0-0.6 18 Abs Basophils 0.1 10^3/uL 0-0.2 18 Abs Nucleated RBC 0 10^3/uL 18 Granulocyte % 67.0 % 38-83 18 Lymphocyte % 22.5 % Low 25-47 18 Monocyte % 7.1 % 1-9 18 Eosinophil % 2.5 % 0-6 18 Basophil % 0.9 % 0-2 18 Nucleated Red Blood Cells % 0 18 Comp Metabolic Panel 11/11/2016 Sodium 134 mmol/L 133-145 18 Potassium 4.2 mmol/L 3.5-5.0 18 Chloride 97 mmol/L Low 101-111 18 Co2 Carbon Dioxide 29 mmol/L 22-32 18 Anion Gap 8 mmol/L 2-11 18 Glucose 143 mg/dL High 70-100 18 Blood Urea Nitrogen 18 mg/dL 6-24 18 Creatinine 0.87 mg/dL 0.51-0.95 18 BUN/Creatinine Ratio 20.7 High 8-20 18 Calcium 9.2 mg/dL 8.6-10.3 18 Total Protein 6.4 g/dL 6.4-8.9 18 Albumin 4.0 g/dL 3.2-5.2 18 Globulin 2.4 g/dL 2-4 18 Albumin/Globulin Ratio 1.7 1-3 18 Total Bilirubin 0.60 mg/dL 0.2-1.0 18 Alkaline Phosphatase 46 U/L 34-104 18 Alt 20 U/L 7-52 18 Ast 18 U/L 13-39 18 Egfr Non- 61.6 >60 18 Egfr 79.2 >60 18, 19 Laboratory test finding 11/11/2016 Magnesium 2.0 mg/dL 1.9-2.7 18, 20 Alcohol < 10 mg/dL <10 18, 21 Folic Acid (Folate) > 20.00 ng/mL >3.99 18, 22 Vitamin B12 550 pg/mL 180-914 18, 23 Vitamin D Total 25(Oh) 54.1 ng/mL High 30-50 18, 24 Reference Lab Test See Comment 18, 25 Urinalysis Profile 10/21/2016 Urine Color Yellow 26 Urine Appearance Cloudy 26 Urine Specific [place] 1.014 1.010-1.030 26 Urine pH 7.0 5-9 26 Urine Urobilinogen Negative Negative 26 Urine Ketones Negative Negative 26 Urine Protein Negative Negative 26 Urine Leukocytes 3+ Negative 26 Urine Blood 2+ Negative 26 * * Negative 26, 27 Urine Nitrite Negative Negative 26 Urine Bilirubin Negative Negative 26 Urine Glucose Negative Negative 26 Urine White Blood Cell 3+(>20/hpf) Absent 26 Urine Red Blood Cell 3+(>10/hpf) Absent 26 Urine Bacteria 1+ Absent 26 Urine Squamous Epithelial Cell Present Absent 26 Urine Transitional Epithelial Present Absent 26 Urine Culture And 10/21/2016 Urine Culture SEE RESULT BELOW 26, 28 Sensitivities Order 03/29/2016 Stress Test, <pending> Pharmacologic Nuclear (Lexiscan) Urine Culture And 03/19/2016 Urine Culture SEE RESULT BELOW 29 Sensitivities Urinalysis Profile 03/19/2016 Urine Color Yellow Urine Appearance Clear Urine Specific [place] 1.015 1.010-1.030 Urine pH 7.0 5-9 Urine Urobilinogen Negative Negative Urine Ketones Negative Negative Urine Protein Negative Negative Urine Leukocytes 1+ Negative Urine Blood Negative Negative * * Negative 30 Urine Nitrite Negative Negative Urine Bilirubin Negative Negative Urine Glucose Negative Negative Urine White Blood Cell Trace(0-5/hpf) Absent Urine Red Blood Cell Trace(0-2/hpf) Absent Urine Bacteria Absent Absent Urine Squamous Epithelial Cell Present Absent Urine Transitional Epithelial Present Absent Urine Culture And Sensitivities 03/07/2016 Urine Culture SEE RESULT BELOW 31 Urinalysis Profile 03/07/2016 Urine Appearance Cloudy Urine Specific [place] 1.009 Low 1.010-1.030 Urine pH 7.0 5-9 Urine Urobilinogen Negative Negative Urine Ketones Negative Negative Urine Protein 2+(100 mg/dL) Negative Urine Leukocytes 2+ Negative Urine Blood 3+ Negative Urine Nitrite Negative Negative Urine Bilirubin Negative Negative Urine Glucose Negative Negative Urine White Blood Cell 2+(11-20/hpf) Absent Urine Red Blood Cell 3+(>10/hpf) Absent Urine Bacteria Absent Absent Urine Color Red Urine Culture And Sensitivities 02/12/2016 Urine Culture SEE RESULT BELOW 32 Urinalysis Profile 02/12/2016 Urine Color Yellow Urine Appearance Clear Urine Specific [place] 1.014 1.010-1.030 Urine pH 5.0 5-9 Urine Urobilinogen Negative Negative Urine Ketones Negative Negative Urine Protein Negative Negative Urine Leukocytes Negative Negative Urine Blood Negative Negative * * Negative 33 Urine Nitrite Negative Negative Urine Bilirubin Negative Negative Urine Glucose Negative Negative Urine Culture And Sensitivities 02/09/2016 Urine Culture SEE RESULT BELOW 34 Urinalysis Profile 02/09/2016 Urine Color Straw Urine Appearance Cloudy Urine Specific [place] 1.008 Low 1.010-1.030 Urine pH 7.0 5-9 Urine Urobilinogen Negative Negative Urine Ketones Negative Negative Urine Protein 1+(30 mg/dL) Negative Urine Leukocytes 3+ Negative Urine Blood 3+ Negative Urine Nitrite Negative Negative Urine Bilirubin Negative Negative Urine Glucose Negative Negative Urine White Blood Cell 3+(>20/hpf) Absent Urine Red Blood Cell 3+(>10/hpf) Absent Urine Bacteria Absent Absent Laboratory test finding 11/02/2015 Urine Culture And SEE RESULT BELOW 35 Sensitivities Urinalysis Profile 11/02/2015 Urine Color Yellow Urine Appearance Cloudy Urine Specific [place] 1.017 1.010-1.030 Urine pH 5.0 5-9 Urine Urobilinogen Negative Negative Urine Ketones Negative Negative Urine Protein Negative Negative Urine Leukocytes 3+ Negative Urine Blood 3+ Negative * * Negative 36 Urine Nitrite Negative Negative Urine Bilirubin Negative Negative Urine Glucose Negative Negative Urine White Blood Cell 3+(>20/hpf) Absent Urine Red Blood Cell 3+(>10/hpf) Absent Urine Bacteria Absent Absent Urinalysis Profile 09/19/2015 Urine Color Yellow Urine Appearance Clear Urine Specific [place] 1.014 1.010-1.030 Urine pH 5.0 5-9 Urine Urobilinogen Negative Negative Urine Ketones Negative Negative Urine Protein Negative Negative Urine Leukocytes Negative Negative Urine Blood Negative Negative * * Negative 37 Urine Nitrite Negative Negative Urine Bilirubin Negative Negative Urine Glucose Negative Negative Laboratory test finding 09/19/2015 Urine Culture And SEE RESULT BELOW 38 Sensitivities Urinalysis Profile 08/30/2015 Urine Color Yellow Urine Appearance Cloudy Urine Specific [place] 1.014 1.010-1.030 Urine pH 7.0 5-9 Urine Urobilinogen Negative Negative Urine Ketones Negative Negative Urine Protein Negative Negative Urine Leukocytes 2+ Negative Urine Blood 2+ Negative Urine Nitrite Negative Negative Urine Bilirubin Negative Negative Urine Glucose Negative Negative Urine White Blood Cell 3+(>20/hpf) Absent Urine Red Blood Cell 3+(>10/hpf) Absent Urine Bacteria Absent Absent Urine Squamous Epithelial Cell Present Absent Laboratory test finding 08/30/2015 Urine Culture And SEE RESULT BELOW 39 Sensitivities Urinalysis Profile 07/24/2015 Urine Color Yellow Urine Appearance Cloudy Urine Specific [place] 1.010 1.010-1.030 Urine pH 7.0 5-9 Urine Urobilinogen Negative Negative Urine Ketones Negative Negative Urine Protein Negative Negative Urine Leukocytes 3+ Negative Urine Blood 1+ Negative Urine Nitrite Negative Negative Urine Bilirubin Negative Negative Urine Glucose Negative Negative Urine White Blood Cell 3+(>20/hpf) Absent Urine Red Blood Cell 3+(>10/hpf) Absent Urine Bacteria 1+ Absent Urine Squamous Epithelial Cell Present Absent Laboratory test finding 07/24/2015 Urine Culture And SEE RESULT BELOW 40 Sensitivities Vitamin D, 25 Hydroxy 03/13/2015 25-Hydroxy Vitamin D2 <4.0 ng/mL 25-Hydroxy Vitamin D3 44 ng/mL 25-Hydroxy Vitamin D Total 44 ng/mL 41 1 [id number] 2 Because ethnic data is not always readily available, this report includes an eGFR for both -Americans and non- Americans. The National Kidney Disease Education Program (NKDEP) does not endorse the use of the MDRD equation for patients that are not between the ages of 18 and 70, are , have extremes of body size, muscle mass, or nutritional status, or are non- or non-. According to the National Kidney Foundation, irrespective of diagnosis, the stage of the disease is based on the level of kidney function: Stage Description GFR(mL/min/1.73 m(2)) 1 Kidney damage with normal or decreased GFR 90 2 Kidney damage with mild decrease in GFR 60-89 3 Moderate decrease in GFR 30-59 4 Severe decrease in GFR 15-29 5 Kidney failure <15 (or dialysis) 3 >100 to <200 pg/mL: likely compensated congestive heart failure (CHF) 200 to 400 pg/mL: likely moderate CHF >400 pg/mL: likely moderate to severe CHF 4 [id number] 5 [id number] 6 [id number] 7 >100 to <200 pg/mL: likely compensated congestive heart failure (CHF) 200 to 400 pg/mL: likely moderate CHF >400 pg/mL: likely moderate to severe CHF 8 [id number] 9 Because ethnic data is not always readily available, this report includes an eGFR for both -Americans and non- Americans. The National Kidney Disease Education Program (NKDEP) does not endorse the use of the MDRD equation for patients that are not between the ages of 18 and 70, are , have extremes of body size, muscle mass, or nutritional status, or are non- or non-. According to the National Kidney Foundation, irrespective of diagnosis, the stage of the disease is based on the level of kidney function: Stage Description GFR(mL/min/1.73 m(2)) 1 Kidney damage with normal or decreased GFR 90 2 Kidney damage with mild decrease in GFR 60-89 3 Moderate decrease in GFR 30-59 4 Severe decrease in GFR 15-29 5 Kidney failure <15 (or dialysis) 10 Desirable <150 Borderline high 150-199 High 200-499 Very High >500 11 Desirable <200 Borderline high 200-239 High >239 12 Low <40 Desirable: 40-60 High: >60 13 Desirable: <100 mg/dL Near Optimal: 100-129 mg/dL Borderline High: 130-159 mg/dL High: 160-189 mg/dL Very High: >189 mg/dL 14 [id number] 15 [id number] 16 [id number] 17 SEE RESULT BELOW Name: ALYSON PERALTA : [address]: Magali Georges NP Acct: [id number] Unit: [id number] AGE: 86 Location: [facility] Re11/20/16 SEX: F Status: REG REF SPEC: [id number] JASMYNE: 11/20/16-0 [facility] DR: Magali Georges NP REQ: [id number] RECD: 11/20/16 STATUS: PEARL [place] DR: Michelle Argueta MD _ SOURCE: URINE SPDESC: ORDERED: Urine Culture COMMENTS: [id number] QUERIES: Urine Source: Random Procedure Result Reported Site Urine Culture Final 12/22/16- 1720 ML Organism 1 ESCHERICHIA COLI Kidder Count 75-100,000 (Many) CFU/ML Organism 2 NORMAL IWONA Kidder Count 1-10,000 (Few) CFU/ML 1. ESCHERICHIA COLI M.I.C. RX --------- ------ Ampicillin <=2 S Cefazolin <=4 S Cefepime <=1 S Ceftriaxone <=1 S Ciprofloxacin <=0.25 S Gentamicin <=1 S Levofloxacin <=0.12 S Meropenem <=0.25 S Nitrofurantoin <=16 S Tetracycline <=1 S Pipercillin/Tazobactam <=4 S Trimethoprim/Sulfamethoxazole <=20 S Amoxicillin/Clavulanic Acid <=2 S Aztreonam <=1 S CONTINUED ON NEXT PAGE * ML=Testing performed at Main Lab DEPARTMENT OF PATHOLOGY, [address] [place] [address] Yo Ness M.D. Director [facility] # [id number] Patient: ALYSON PERALTA [id number] (Continued) Specimen: [id number] Collected: 11/20/16-1130 Received: 11/20/16 (Continued) Procedure Result Reported Site Urine Culture Final (continued) Contact the Microbiology Department for any additional antibiotic reporting. * ML - MAIN LAB ([facility]) . END OF REPORT * ML=Testing performed at Main Lab DEPARTMENT OF PATHOLOGY, [address] [place] [address] Yo Ness M.D. Director [facility] # [id number] 18 [id number] 19 Because ethnic data is not always readily available, this report includes an eGFR for both -Americans and non- Americans. The National Kidney Disease Education Program (NKDEP) does not endorse the use of the MDRD equation for patients that are not between the ages of 18 and 70, are , have extremes of body size, muscle mass, or nutritional status, or are non- or non-. According to the National Kidney Foundation, irrespective of diagnosis, the stage of the disease is based on the level of kidney function: Stage Description GFR(mL/min/1.73 m(2)) 1 Kidney damage with normal or decreased GFR 90 2 Kidney damage with mild decrease in GFR 60-89 3 Moderate decrease in GFR 30-59 4 Severe decrease in GFR 15-29 5 Kidney failure <15 (or dialysis) 20 [id number] 21 [id number] 22 [id number] 23 Normal Range 180 to 914 Indeterminate Range 145 to 180 Deficient Range <145 24 [id number] 25 TEST RESULT REFERENCE Carb Def Transferrin, Adult, S [place]-oligo/Di-oligo Ratio 0.04 0.00-0.10 Interpretation See Comment Normal result. In the absence of clinical information and considering that this sample is from an adult patient, we assume that it was submitted for the investigation or follow-up of alcoholism. Patients with chronic alcoholism may develop abnormally glycosylated transferrin isoforms resembling those found in congenital disorders of glycosylation (CDG) ([employer] Alcohol 1999, 19:261-271). Please note that this assay has not been fully evaluated for the follow-up of alcohol abuse. The determination of transferrin glycoforms is primarily used for the detection of CDGs, particularly the deficiencies of phosphomannomutase (PMM; CDG type Ia) and phosphomannoisomerase (PMI; CDG Ib). Occasionally, some patients with these disorders normalize their transferrin glycoform pattern and may escape diagnosis. Test Performed by: [place] [address] Java Development Manager: Lambert Flores II, M.D., Ph.D. 26 [id number] 27 *Ascorbic acid is present which may interfere with detection of blood. 28 SEE RESULT BELOW Name: ALYSON PERALTA : [address]: Micky Bailey NP Acct: [id number] Unit: [id number] AGE: 86 Location: [facility] Re10/21/16 SEX: F Status: REG REF SPEC: [id number] JASMYNE: 10/21/16-1030 [facility] DR: Micky Bailey NP REQ: [id number] RECD: 10/21/16 STATUS: PEARL [place] DR: Pradip Martinez _ SOURCE: URINE SPDESC: ORDERED: Urine Culture COMMENTS: [id number] Procedure Result Reported Site Urine Culture Final 10/23/16- 0802 ML Organism 1 ESCHERICHIA COLI Kidder Count >100,000 (Many) CFU/ML 1. ESCHERICHIA COLI M.I.C. RX --------- ------ Ampicillin <=2 S Cefazolin <=4 S Cefepime <=1 S Ceftriaxone <=1 S Ciprofloxacin <=0.25 S Gentamicin <=1 S Levofloxacin <=0.12 S Meropenem <=0.25 S Nitrofurantoin <=16 S Tetracycline <=1 S Pipercillin/Tazobactam <=4 S Trimethoprim/Sulfamethoxazole <=20 S Amoxicillin/Clavulanic Acid <=2 S Aztreonam <=1 S Contact the Microbiology Department for any additional antibiotic reporting. * ML - MAIN LAB ([facility]) . END OF REPORT * ML=Testing performed at Main Lab DEPARTMENT OF PATHOLOGY, [address] [place] [address] Yo Ness M.D. Director [facility] # [id number] 29 SEE RESULT BELOW Name: VIOLETASHARYNALYSON : [address]: Magali Georges NP Acct: [id number] Unit: [id number] AGE: 86 Location: [facility] Re03/19/16 SEX: F Status: REG REF SPEC: [id number] JASMYNE: 03/19/[address]: Magali Georges DIRECTOR PHYSICAL REQ: [id number] RECD: 03/19/16 STATUS: PEARL [place] DR: Michelle _ SOURCE: URINE SPDESC: ORDERED: Urine Culture Procedure Result Reported Site Urine Culture Final 03/20/16- 1307 ML No growth of clinically significant organisms * ML - MAIN LAB ([facility]) . END OF REPORT * ML=Testing performed at Main Lab DEPARTMENT OF PATHOLOGY, [address] [place] [address] Yo Ness M.D. Director [facility] # [id number] 30 *Ascorbic acid is present which may interfere with detection of blood. 31 SEE RESULT BELOW Name: ALYSON PERALTA : [address]: Magali Georges NP Acct: [id number] Unit: [id number] AGE: 86 Location: [facility] Re03/07/16 SEX: F Status: REG REF SPEC: [id number] JASMYNE: 03/07/[address]: Magali Georges NP REQ: [id number] RECD: 03/07/16-1245 STATUS: PEARL [place] DR: Michelle _ SOURCE: URINE SPDESC: ORDERED: Urine Culture Procedure Result Reported Site Urine Culture Final 03/08/16- 1353 ML No growth of clinically significant organisms * ML - MAIN LAB ([facility]) . END OF REPORT * ML=Testing performed at Main Lab DEPARTMENT OF PATHOLOGY, [address] [place] [address] Yo Ness M.D. Director [facility] # [id number] 32 SEE RESULT BELOW Name: ALYSON PERALTA : [address]: Pradip Prakash MD Acct: [id number] Unit: [id number] AGE: 86 Location: [facility] Re02/12/16 SEX: F Status: REG REF SPEC: [id number] JASMYNE: 02/12/16-1415 [facility] DR: Magali Georges NP REQ: [id number] RECD: 02/12/16 STATUS: PEARL [place] DR: Michelle Beaulieu SOURCE: URINE SPDESC: ORDERED: Urine Culture Procedure Result Reported Site Urine Culture Final 02/14/16- 818 ML No growth of clinically significant organisms * ML - MAIN LAB ([facility]) . END OF REPORT * ML=Testing performed at Main Lab DEPARTMENT OF PATHOLOGY, [address] [place] [address] Yo Ness M.D. Director [facility] # [id number] 33 *Ascorbic acid is present which may interfere with detection of blood. 34 SEE RESULT BELOW Name: ALYSON PERALTA : [address]: Magali Georges NP Acct: [id number] Unit: [id number] AGE: 86 Location: [facility] Re02/09/16 SEX: F Status: REG REF SPEC: [id number] JASMYNE: 02/09/1655 [facility] DR: Magali Georges NP REQ: [id number] RECD: 02/09/16 STATUS: PEARL [place] DR: Michelle _ SOURCE: URINE SPDESC: ORDERED: Urine Culture Procedure Result Reported Site Urine Culture Final 02/11/16- 919 ML Mixed iwona; possible contamination. Suggest resubmission. * ML - MAIN LAB ([facility]) . END OF REPORT * ML=Testing performed at Main Lab DEPARTMENT OF PATHOLOGY, [address] [place] [address] Yo Ness M.D. Director [facility] # [id number] 35 SEE RESULT BELOW Name: ALYSON PERALTA : [address]: Magali Georges NP Acct: [id number] Unit: [id number] AGE: 85 Location: [facility] Re11/02/15 SEX: F Status: REG REF SPEC: [id number] JASMYNE: 11/02/15-1400 [facility] [address]: Magali Georges NP REQ: [id number] RECD: 11/02/15 STATUS: PEARL [place] DR: Michelle Beaulieu SOURCE: URINE SPDESC: ORDERED: Urine Culture QUERIES: Urine Source: Clean Catch Procedure Result Reported Site Urine Culture Final 11/04/15- 08 ML Organism 1 ESCHERICHIA COLI Kidder Count 10-25,000 (Moderate) CFU/ML 1. ESCHERICHIA COLI M.I.C. RX --------- ------ Ampicillin 4 S Cefazolin <=4 S Cefepime <=1 S Ceftriaxone <=1 S Ciprofloxacin <=0.25 S Gentamicin <=1 S Levofloxacin <=0.12 S Meropenem <=0.25 S Nitrofurantoin <=16 S Tetracycline <=1 S Pipercillin/Tazobactam <=4 S Trimethoprim/Sulfamethoxazole <=20 S Amoxicillin/Clavulanic Acid <=2 S Aztreonam <=1 S Contact the Microbiology Department for any additional antibiotic reporting. * ML - MAIN LAB ([facility]) . END OF REPORT * ML=Testing performed at Main Lab DEPARTMENT OF PATHOLOGY, [address] [place] [address] Yo Ness M.D. Director [facility] # [id number] 36 *Ascorbic acid is present which may interfere with detection of blood. 37 *Ascorbic acid is present which may interfere with detection of blood. 38 SEE RESULT BELOW Name: ALYSON PERALTA : [address]: Magali Georges NP Acct: [id number] Unit: [id number] AGE: 85 Location: [facility] Re09/19/15 SEX: F Status: REG REF SPEC: [id number] JASMYNE: 09/19/15-[address]: Magali Georges DIRECTOR PHYSICAL REQ: [id number] RECD: 09/20/15-1300 STATUS: PEARL [place] DR: Michelle _ SOURCE: URINE SPDESC: ORDERED: Urine Culture Procedure Result Verified Site Urine Culture Final 09/22/15- 1000 ML Organism 1 ESCHERICHIA COLI Kidder Count 10-25,000 (Moderate) CFU/ML 1. ESCHERICHIA COLI M.I.C. RX --------- ------ Ampicillin <=2 S Cefazolin <=4 S Cefepime <=1 S Ceftriaxone <=1 S Ciprofloxacin <=0.25 S Gentamicin <=1 S Levofloxacin <=0.12 S Meropenem <=0.25 S Nitrofurantoin <=16 S Tetracycline <=1 S Pipercillin/Tazobactam <=4 S Trimethoprim/Sulfamethoxazole <=20 S Amoxicillin/Clavulanic Acid <=2 S Aztreonam <=1 S Contact the Microbiology Department for any additional antibiotic reporting. * ML - MAIN LAB ([facility]) . END OF REPORT * ML=Testing performed at Main Lab DEPARTMENT OF PATHOLOGY, [address] [place] [address] Yo Ness M.D. Director [facility] # [id number] 39 SEE RESULT BELOW Name: ALYSON PERALTA : [address]: Magali Georges DIRECTOR PHYSICAL Acct: [id number] Unit: [id number] AGE: 85 Location: [facility] Re08/30/15 SEX: F Status: REG REF SPEC: [id number] JASMYNE: 08/30/15-899 [facility] [address]: Magali Georges NP REQ: [id number] RECD: 08/30/15-1233 STATUS: COMP _ SOURCE: URINE SPDES: ORDERED: Urine Culture Procedure Result Verified Site Urine Culture Final 09/01/15- 1057 ML Organism 1 NORMAL IWONA Kidder Count 10-25,000 (Moderate) CFU/ML * ML - MAIN LAB ([facility]) . END OF REPORT * ML=Testing performed at Main Lab DEPARTMENT OF PATHOLOGY, [address] [place] [address] Yo Ness M.D. Director [facility] # [id number] 40 SEE RESULT BELOW Name: ALYSON PERALTA : [address]: Magali Georges NP Acct: [id number] Unit: [id number] AGE: 85 Location: [facility] Re07/24/15 SEX: F Status: REG REF SPEC: [id number] JASMYNE: 07/24/15-[address]: Magali Georgse NP REQ: [id number] RECD: 07/24/15 STATUS: PEARL [place] DR: Michelle _ SOURCE: URINE SPDESC: ORDERED: Urine Culture Procedure Result Verified Site Urine Culture Final 07/26/15- 0857 ML Organism 1 ESCHERICHIA COLI Kidder Count >100,000 (Many) CFU/ML 1. ESCHERICHIA COLI M.I.C. RX --------- ------ Ampicillin 4 S Cefazolin <=4 S Cefepime <=1 S Ceftriaxone <=1 S Ciprofloxacin <=0.25 S Gentamicin <=1 S Levofloxacin <=0.12 S Meropenem <=0.25 S Nitrofurantoin <=16 S Tetracycline <=1 S Pipercillin/Tazobactam <=4 S Trimethoprim/Sulfamethoxazole <=20 S Amoxicillin/Clavulanic Acid <=2 S Aztreonam <=1 S Contact the Microbiology Department for any additional antibiotic reporting. * ML - MAIN LAB ([facility]) . END OF REPORT * ML=Testing performed at Main Lab DEPARTMENT OF PATHOLOGY, [address] [place] [address] Yo Ness M.D. Director [facility] # [id number] 41 REFERENCE VALUE 25-HYDROXY D TOTAL (D2+D3) Optimum levels in the healthy population are 20-50, patients with bone disease may benefit from higher levels within this range. Test Performed by: [place] [address] [employer] Development Manager: Lambert Flores II, M.D., Ph.D. Procedures Date CPT Code Description Status 05/18/2018 02481 EKG Tracing & Interpretation Completed 04/21/2018 95380 Stress Test Completed 04/21/2018 11200 Myocardial Perfusion Imaging Tomographic (Spect) Completed Multiple Studies 03/31/2018 90802 Holter Monitor Review (24 hr)dr review & interp only Completed 03/30/2018 74116 ECG Monitor/Recording W/Visual Superimposition Scanning Completed 03/19/2018 85108 ECG Monitor/Recording W/Visual Superimposition Scanning Completed 02/27/2018 15923 ECHO Transthoracic, Real-Time 2D With Doppler And Color Completed Flow 02/27/2018 78733 ECHO Transthoracic, Real-Time 2D With Doppler And Color Completed Flow 02/09/2018 14102 EKG Tracing & Interpretation Completed 11/11/2017 64524 Holter Monitor Review (24 hr)dr review & interp only Completed 11/10/2017 01894 ECG Monitor/Recording W/Visual Superimposition Scanning Completed 11/10/2017 97893 ECG Monitor/Recording W/Visual Superimposition Scanning Completed 10/11/2017 98868 Holter Monitor Review (24 hr)dr review & interp only Completed 10/07/2017 49917 ECG Monitor/Recording W/Visual Superimposition Scanning Completed 10/07/2017 06994 ECG Monitor/Recording W/Visual Superimposition Scanning Completed 09/30/2017 92680 EKG Tracing & Interpretation Completed 06/09/2017 18293 ECHO Transthoracic, Real-Time 2D With Doppler And Color Completed Flow 05/06/2017 96125 Holter Monitor Review (24 hr) review & interp only Completed 05/05/2017 02326 ECG Monitor/Recording W/Visual Superimposition Scanning Completed 04/17/2017 61289 EKG Tracing & Interpretation Completed 10/30/2016 01301 Inject/Drain Joint/Bursa Major W/O US Completed 07/24/2016 00892 EKG Tracing & Interpretation Completed 07/11/2016 01945 Polysomnography Sleep Staging 4+ Parameters W/Cpap Completed 05/17/2016 09314 ECHO Transthoracic, Real-Time 2D With Doppler And Color Completed Flow 05/03/2016 84716 Holter Monitor Review (24 hr)dr review & interp only Completed 03/29/2016 12289 Stress Test Completed 03/29/2016 23120 Myocardial Perfusion Imaging Tomographic (Spect) Completed Multiple Studies 03/29/2016 77569 Myocardial Perfusion Imaging Tomographic (Spect) Completed Multiple Studies 02/27/2016 19266 EKG Tracing & Interpretation Completed 12/28/2014 01582 ECHO Transthorasic Realtime 2D W Doppler & Color Flow Completed Hosp Encounters Type Date Location Provider CPT E/M Dx Office Visit 05/08/2018 [facility] Magali Georges, [address] H11.32 9:53a N.P. Office Visit 03/06/[address] [facility], [address] R06.02 10:00a [facility] N.P. I48.2 R60.9 I10 Office Visit 02/09/2018 10:40a [facility] Kye An M.D. 70446 I48.2 R06.02 R60.9 I10 Office Visit 01/20/2018 9:36a [facility] Samira Mckinney, DIRECTOR PHYSICAL 85937 N63.22 Office Visit 01/09/2018 8:27a [facility] Samira Mckinney, DIRECTOR PHYSICAL 33290 B37.2 L30.4 L82.1 Office Visit 12/23/2017 8:48a [facility] Samira Mckinney, DIRECTOR PHYSICAL 19088 B37.2 L30.4 Office Visit 12/22/2017 10:45a [facility] [place] [address] G47.33 Services Of [facility] E66.09 Office Visit 12/05/2017 11:41a [facility] [place] [address] B37.2 B37.2 Office Visit 10/30/2017 9:45a [facility] LYDIA Drummond 23718 R06.00 I48.2 I10 Office Visit 09/30/2017 1:20p [facility] Kye An, 33341 R06.02 [place] I48.2 I10 G47.33 R53.83 I48.91 R94.31 Office Visit 09/05/2017 10:00a [facility] Samira RomanKAMI moeller G9744 M54.5 Office Visit 07/16/2017 11:22a [facility] [place] [address] R06.02 Office Visit 05/27/2017 10:00a [facility] [place] [address] G47.33 Services Of [facility] Office Visit 05/26/2017 10:30a [facility] LYDIA Drummond 97425 I48.2 J18.9 I10 Office Visit 05/18/2017 4:27p [facility], Kim Houston, 19591 E87.1 Hospitalists [place] J18.9 I48.2 I10 Office Visit 05/17/2017 4:27p [facility] Kim Byrdhn, 61227 E87.1 Hospitalists [place] J18.9 I48.2 I10 Office Visit 05/16/2017 4:26p [facility], Kim Byrdhn, 28377 E87.1 Hospitalists [place] J18.9 I48.2 I10 Office Visit 05/15/2017 4:25p [facility], Kim Byrdhn, 39701 J18.9 Hospitalists [place] E87.1 I48.2 I10 Office Visit 05/14/2017 9:44a [facility] Magali Destini, 63493 N.P. Office Visit 05/14/2017 4:24p [facility], [place] [address] J18.9 Hospitalists E87.1 I48.2 I10 Office Visit 05/12/2017 11:26a [facility] Magaligeo Georges, N.P. 00693 J18.9 Office Visit 04/17/2017 1:40p [facility] Kye An, 62559 G47.33 M.DShanita R00.2 E66.09 I10 I48.0 R06.00 Office Visit 03/05/2017 8:58a [facility] Magali Destini, 75587 S96.911A N.P. Office Visit 12/13/2016 10:00a [facility] [place] [address] G47.33 Services Of Sole Stainer E66.09 Office Visit 11/20/2016 8:38a [facility] Magaligeo Georges, N.P. 97132 Z71.41 N39.0 Office Visit 11/05/2016 11:47a [facility] Magaligeo Georges, N.P. 12003 Z48.02 Z71.41 Office Visit 10/30/2016 9:30a [facility] Phillips M.D. 06940 M17.11 C.M.A. Z96.651 M17.12 Office Visit 10/21/2016 10:00a [facility] [address] N39.490 Office Visit 09/11/2016 10:00a [facility] Estelle Marrufo, 22852 G47.33 Services Of [facility] Office Visit 09/05/2016 10:09a [facility] Magali Destini, 60029 M17.0 N.P. Office Visit 08/27/2016 9:30a [facility] LYDIA Drummond 17740JLO G47.33 [facility] E66.09 I10 Office Visit 07/26/2016 9:30a [facility] [place] [address] G47.33 Services Of [facility] E66.09 Office Visit 07/24/2016 1:20p [facility] Kye An, 00385 G47.33 M.D. R09.02 I36.1 R06.02 R60.0 I49.1 Office Visit 06/12/2016 10:15a [facility] [place] [address] G47.9 Services Of [facility] R09.02 Office Visit 05/21/2016 8:30a [facility] LYDIA Drummond 02379 I36.1 R00.2 R09.02 R06.02 Office Visit 03/19/2016 8:53a [facility] Magaligeo Georges, N.P. 46979 R31.9 Z87.440 Office Visit 03/07/2016 9:43a [facility] Magaligeo Georges, N.P. 43530 N39.0 Office Visit 02/27/2016 2:00p [facility] Kye An, 09066 R60.0 M.D. G31.84 I10 R00.2 R01.1 R94.31 G47.9 Office Visit 02/09/2016 3:33p [facility] Magaligeo Georges, N.P. 55437 N39.0 Office Visit 11/21/2015 11:00a [facility] [address] L20.9 L30.9 Office Visit 11/03/2015 3:20p [facility] Magaligeo Georges, N.P. 16187 N39.0 Office Visit 10/11/2015 11:33a [facility] Magali Georges, N.P. 11933 H02.403 Office Visit 08/31/2015 9:59a [facility] Magali Georges, N.P. 91205 N39.0 Office Visit 07/24/2015 2:51p [facility] Magali Georges, N.P. 48235 599.0 599.0 Office Visit 05/26/2015 2:21p [facility] Magali Georges, N.P. 73886 782.3 715.00 715.00 782.3 715.36 Office Visit 02/23/2015 9:30a [facility] Curtis Ceballos, 55112 331.83 M.DShanita Office Visit 02/02/2015 11:39a [facility] Magali Georges, 35088 599.70 N.P. 599.70 Office Visit 01/18/2015 9:05a [facility], 33072 244.9 Hospitalists M.DShanita 294.20 312.9 Office Visit 01/15/2015 3:46p [facility] Curtis Ceballos, 58562 780.09 MOliva 780.97 Office Visit 01/14/2015 9:04a [facility], 97913 244.9 Hospitalists M.D. 294.20 312.9 Office Visit 2015 9:04a [facility], 30086 244.9 Hospitalists M.D. 294.20 312.9 Office Visit 01/12/2015 9:03a [facility], 25665 244.9 Ass, Hospitalists MShanitaDShanita 294.20 312.9 Office Visit 01/03/2015 7:42a [facility], Curtis Andersen 21881 599.0 Hospitalists Duane Woo 780.09 780.97 276.1 Office Visit 01/02/2015 7:41a [facility], Curtis Andersen 39140 599.0 Hospitalists Duane Woo 780.09 780.97 276.1 Office Visit 01/01/2015 7:41a [facility] [place], 86827 599.0 Hospitalists M.D. 780.09 276.1 Office Visit 12/31/2014 7:40a [facility] [place], 36971 599.0 Hospitalists M.D. 427.31 780.09 780.97 Office Visit 12/30/2014 7:40a [facility] [place], 58020 599.0 Hospitalists M.D. 780.09 Office Visit 12/29/2014 7:40a [facility] [place], 03667 427.31 Hospitalists M.D. 599.0 780.09 Office Visit 12/28/2014 7:39a [facility], Marlon Harley M.D. 53174 427.31 Hospitalists 599.0 780.97 244.9 Office Visit 12/09/2014 4:25p [facility] [place] [address] 599.0 788.1 Office Visit 11/19/2013 1:55p [facility] Kelly Muniz, 08084 873.40 Home N.P. Office Visit 11/04/2013 10:55a [facility] Kelly Muniz, 88478 707.19 Home N.P. Office Visit 03/18/2013 10:02a [facility] Kelly Muniz, 10377 558.9 Home N.P. Office Visit 01/19/2013 11:41a [facility] Kelly Muniz, 49914 840.8 Home N.P. Office Visit 05/19/2012 12:05p [facility] Kelly Muniz, 54266 611.79 Home N.P. Office Visit 11/15/2011 9:00a [facility] Kelly Muniz, 11275 847.9 Home N.P. Office Visit 11/01/2011 9:20a [facility] Kelly Muniz, 28422 530.81 Home N.P. 553.3 Office Visit 10/31/2011 9:40a [facility] Kelly Muniz, 75140 789.06 Home N.P. 530.81 553.3 Office Visit 05/14/2011 9:40a [facility] Nitesh Calhoun M.D. 22963 709.9 Plan of Care Future Appointment(s):08/18/2018 10:30 am - Candice Tse N.P. at [facility]06/22/2018 10:45 am - Estelle Marrufo MD at [facility]05/18/2018 - Kye An M.D.I48.2 Chronic atrial tlgrjxysbwdwS80.00 Dyspnea, unspecifiedNew Labs:CMP PanelCBC W/Auto DiffBrain Natriuretic PeptideFollow up:ov Candice 3 m ov ROSALINDA 9 mI10 Essential (primary) hypertension
[2018-06-02 16:55] VITALS: BP 133/81
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
== END 2018-06-02 17:43 | disposition home or self-care (01) ==
LOC: ED 15:28
DX: S09.90XA Unspecified injury of head, initial encounter (principal); S00.83XA Contusion of other part of head, initial encounter; V98.8XXA Other specified transport accidents, initial encounter; Y92.9 Unspecified place or not applicable; Z79.01 Long term (current) use of anticoagulants
CPT/HCPCS: 70450; 99282; A9270-GY